=== PATIENT | male | born 1985 | race African-American/Black ===

== ENCOUNTER 2021-03-22 00:36 | Emergency (ER) | payer OTHER, SELFPAY ==
--- NOTE | ~2021-03-22 | CT_ITS ---
EXAMINATION: CT ABDOMEN AND PELVIS WITH CONTRAST CLINICAL INFORMATION: Abdominal pain COMPARISON: 11/01/2019 TECHNIQUE: Multidetector volumetric images were obtained from the superior aspect of the liver through the pubic symphysis following administration 85 mL of Omnipaque 350 intravenous contrast. Sagittal and coronal reformatted images were obtained on the technologist's workstation. Oral contrast: No This CT examination was performed using dose optimization techniques as appropriate, variously including the following: *Automated exposure control *Adjustment of mA and/or kV according to patient size (this includes techniques or standardized protocols for targeted exams where dose is matched to indication/reason for exam; i.e. extremities or head) *Use of iterative reconstruction technique DLP: 424 mGy-cm FINDINGS: LUNG BASES: The visualized lung bases are unremarkable. LIVER, GALLBLADDER, AND BILIARY TREE: The liver is normal in size, shape, and attenuation. No focal hepatic lesion or biliary ductal dilatation is present. The gallbladder is unremarkable with no evidence of radiopaque gallstones, gallbladder wall thickening, or obvious pericholecystic inflammatory changes. PANCREAS: Unremarkable. SPLEEN: Unremarkable. ADRENAL GLANDS: Unremarkable. KIDNEYS AND URETERS: The kidneys are normal in size, shape, and attenuation. No hydronephrosis, hydroureter, or calculi seen. No perinephric stranding. BLADDER: Unremarkable. GASTROINTESTINAL TRACT: The stomach is unremarkable. Normal caliber small bowel. No obstruction. Normal appendix. No colonic wall thickening or inflammatory change. No free air or free fluid. ABDOMINAL WALL: No significant hernia is appreciated. LYMPH NODES: Normal. VASCULAR: Unremarkable. PELVIC VISCERA: The prostate and seminal vesicles are unremarkable. OSSEOUS STRUCTURES: Unremarkable. CT/CT abdomen pelvis w con IMPRESSION: No acute findings of the abdomen or pelvis. No inflammatory change. Normal appendix.
[2021-03-22 00:50] VITALS: BP 97/64; PULSE 98; RESP 18; TEMP 36.4; O2SAT 99; BMI 24.3
--- NOTE | 2021-03-22 04:25 | ED_ITS ---
HPI - Abdominal Pain General Chief Complaint: Abdominal Pain Stated Complaint: abd pain Time Seen by Provider: 03/22/21 04:24 Source: patient Mode of arrival: ambulatory History of Present Illness HPI narrative: This 35-year-old male with history of a chill the presents with months abdominal cramping and states that for about an hour he has felt ?off? since yesterday. In triage patient endorses that he received the maternity vaccine yesterday. However, for me he paints a picture of having been evaluated for this abdominal cramping for months and has not been associated with fever, chills, nausea, vomiting, diarrhea, or urinary symptoms but states that evening he called into work because he had some vomiting and diarrhea but felt that it was secondary to some bad food that he had eaten. Related Data Allergies Allergy/AdvReac Type Severity Reaction Status Date / Time Sulfa (Sulfonamide Allergy Unknown UNKNOWN Unverified 04/25/20 17:26 Antibiotics) [SULFA (SULFONAMIDE ANTIBIOTICS)] Review of Systems Review of Systems Pertinent positives and negatives as stated in HPI 10 point review of systems is otherwise negative. Physical Exam Vital Signs: Vital Signs: Last Vital Signs Temp 97.5 F 03/22/21 00:50 Pulse 85 03/22/21 06:38 Resp 16 03/22/21 06:38 BP 109/79 03/22/21 06:38 Pulse Ox 97 03/22/21 06:38 Body Mass Index 24.3 VITAL SIGNS: Reviewed. GENERAL: Well developed, well nourished, in no acute distress. HEAD: Normocephalic/atraumatic EYES: PERRLA, EOMI LUNGS: Normal breath sounds. No adventitious sounds or accessory muscle use. SpO2<99> CARDIOVASCULAR: Regular rate and rhythm without noted murmurs ABDOMEN: Soft, non-tender, non-distended with bowel sounds. SKIN: Inspection of the skin reveals no rashes NEUROLOGIC: Alert and oriented x 4. Strength and sensation to light touch were grossly intact x 4. Course Course Course Narrative: This is a 35-year-old male with history and clinical presentation consistent with possible IBS versus gastritis versus gastroenteritis and doubt renal colic or UTI and inconsistent with appendicitis. Review of all investigations although significant for a leukocytosis this is consistent with prior lab work which shows the same, otherwise there are no acute findings. All results were discussed with the patient at bedside and he was strongly encouraged to continue with follow-up with Gastroenterology for further outpatient management. Patient was otherwise discharged home in stable condition. MDM - Abdominal Pain Lab Data Result diagrams: 03/22/21 04:52 03/22/21 04:52 Labs: Lab Results 03/22/21 03/22/21 03/22/21 Range/Units 04:52 04:52 04:52 WBC 15.5 H (4.8-10.8) X10*3/uL RBC 4.51 L (4.60-5.80) X10*6/uL Hgb 14.8 (14.0-18.0) g/dl Hct 42.3 (42-52) % MCV 93.8 (80-98) fL MCH 32.8 (27.0-33.0) pg MCHC 35.0 (31.0-36.0) g/dl RDW 13.7 (11.0-16.0) % Plt Count 264 (160-400) X10*3/uL MPV 9.0 L (9.4-12.4) fL Immature Gran % (Auto) 0.3 (0.0-0.4) % Neut % (Auto) 81.9 H (45-73) % Lymph % (Auto) 8.8 L (20-40) % [place] % (Auto) 7.6 (2-11) % Eos % (Auto) 1.3 (0-4) % Baso % (Auto) 0.1 (0-2) % Lymph # (Auto) 1.4 (1.2-4.9) X10*3/uL [place] # (Auto) 1.2 (0.1-1.2) X10*3/uL Eos # (Auto) 0.2 (0.0-0.4) X10*3/uL Baso # (Auto) 0.0 (0.0-0.2) X10*3/uL Abs Immat Gran (auto) 0.05 H (0.00-0.03) X10*3/uL Absolute Neuts (auto) 12.7 H (2.0-8.3) X10*3/uL Absolute Nucleated RBC 0.000 (0.0-0.012) X10*3/uL Nucleated RBC % (auto) 0.0 (0.0-0.2) /100WBC Sodium 139 (135-145) mmol/L Potassium 4.4 (3.3-5.1) mmol/L Chloride 105 (96-108) mmol/L Carbon Dioxide 26 (22-29) mmol/L Anion Gap 12 (12-20) BUN 8 L (9-16) mg/dL Creatinine 1.23 (0.5-1.4) mg/dL Estim Creat Clear Calc 77.6 Estimated GFR > 60 Random Glucose 96 (60-115) mg/dL Calcium 9.3 (8.4-10.2) mg/dL Total Bilirubin 0.6 (0.0-1.0) mg/dL AST 18 (5-37) U/L ALT 17 (0-40) U/L Alkaline Phosphatase 73 (39-117) U/L Total Protein 6.7 (6.5-8.0) g/dL Albumin 4.0 (3.5-5.0) g/dL COVID-19 ([facility]) Negative (Negative) COVID-19 Clin Com See Note Discharge Plan Discharge Clinical Impression: Gastritis, Abdominal discomfort, Hx of leukocytosis Patient Disposition: Home, Self-Care Instructions: Gastritis (ED), Diet for Stomach Ulcers and Gastritis (ED), Leukocytosis (ED) Additional Instructions: 1. Resume all home medications as prescribed. 2. Recommend adding Mylanta prior to meals for additional symptom relief of your stomach. 3. Please continue follow-up with your primary care provider as well as Gastroenterology. Return to the ER for acute worsening of symptoms. Referrals: Cosme Davies MD [Primary Care Provider] - 2 days (Re-evaluation for patient with chronic abdominal discomfort and what appears to be a persistent leukocytosis.) Stand Alone Forms: Work/School Release PMFSH Past Medical History Source: nursing notes reviewed Medical History No known health problems Social History Social History Advance Directives: No Advance Directives Information Provided: No
[2021-03-22] MEDS: Lidocaine HCl Viscous 2 % 15 ML SOLUTION 10 ML MUCOUS MEM (04:52)
[2021-03-22] MEDS: Magnesium Hydrox/Alum Hydrox 30 ML ORAL.SUSP PO (04:52)
[2021-03-22 05:00] LABS: MANUAL DIFF FLAG NO
[2021-03-22 05:01] LABS: Basophils Percent Auto 0.1 % (0-2); Eosinophils Absolute Auto 0.2 X10*3/uL (0.0-0.4); Eosinophils Percent Auto 1.3 % (0-4); Hematocrit 42.3 % (42-52); Hemoglobin 14.8 g/dl (14.0-18.0); Imm Gran Abs Auto 0.05 X10*3/uL (0.00-0.03); Imm Gran Pct Auto 0.3 % (0.0-0.4); Lymphocytes Absolute Auto 1.4 X10*3/uL (1.2-4.9); Lymphocytes Percent Auto 8.8 % (20-40); Mean Corpuscular Hemoglobin 32.8 pg (27.0-33.0); Mean Corpuscular Volume 93.8 fL (80-98); Monocytes Absolute Auto 1.2 X10*3/uL (0.1-1.2); Monocytes Percent Auto 7.6 % (2-11); Neutrophils Absolute Auto 12.7 X10*3/uL (2.0-8.3); Neutrophils Percent Auto 81.9 % (45-73); Platelet Count 264 X10*3/uL (160-400); Red Blood Count 4.51 X10*6/uL (4.60-5.80); Red Cell Distribution Width 13.7 % (11.0-16.0); White Blood Count 15.5 X10*3/uL (4.8-10.8)
[2021-03-22 05:17] LABS: COVID-19 Test Negative (Negative); IDNOW Serial# 9DD0AD1C
[2021-03-22 05:33] LABS: Alanine Aminotransferase 17 U/L (0-40); Alkaline Phosphatase 73 U/L (39-117); Anion Gap 12 (12-20); Aspartate Amino Transferase 18 U/L (5-37); Bilirubin Total 0.6 mg/dL (0.0-1.0); Blood Urea Nitrogen 8 mg/dL (9-16); Calcium 9.3 mg/dL (8.4-10.2); Carbon Dioxide 26 mmol/L (22-29); Chloride 105 mmol/L (96-108); Creatinine Clr Calc Pharmacy 77.6; Estimated Glomerular Filt Rate > 60; Glucose Random 96 mg/dL (60-115); Potassium 4.4 mmol/L (3.3-5.1); Sodium 139 mmol/L (135-145); Total Protein 6.7 g/dL (6.5-8.0)
[2021-03-22] MEDS: iohexoL 350 MG/ML 100 ML INFUS..BTL 85 ML IV (06:19)
[2021-03-22 06:38] VITALS: BP 109/79; PULSE 85; RESP 16; O2SAT 97
[2021-03-22 07:34] LABS: Glucose Urine UA NEG (NEG); Leukocyte Esterase Urine NEG (NEG); Nitrite Urine NEG (NEG); Specific Gravity - Urine <= 1.005 (1.005-1.025); Urine Blood NEG (NEG); Urine Ketones NEG (NEG); Urine Protein NEG (NEG-TRACE)
[2021-03-22 08:45] LABS: Appearance Urine CLEAR; Color Urine YELLOW
== END 2021-03-22 08:33 | disposition home or self-care (01) ==
PROVIDERS: Emergency Provider Student in an Organized Health Care Education/Training Program; PCP Internal Medicine
DX: K29.70 Gastritis, unspecified, without bleeding (principal); R10.9 Unspecified abdominal pain; D72.829 Elevated white blood cell count, unspecified; Z20.822 Contact with and (suspected) exposure to COVID-19
CPT/HCPCS: 36415; 74177; 80053; 81003; 85025; 87635; 99284; Q9967

== ENCOUNTER 2021-06-02 18:39 | Emergency (ER) | payer OTHER, SELFPAY ==
[2021-06-02 20:23] VITALS: BP 116/73; PULSE 70; RESP 16; TEMP 36.8; O2SAT 99; BMI 23.3
== END 2021-06-02 21:27 | disposition left against medical advice (07) ==
LOC: HO.ED 21:45
PROVIDERS: Emergency Provider Emergency Medicine; PCP Internal Medicine
DX: R51.9 Headache, unspecified (principal)
CPT/HCPCS: 99281; 99282

== ENCOUNTER 2022-10-25 18:58 | Emergency (ER) | payer OTHER, SELFPAY ==
[2022-10-25 19:07] VITALS: BP 121/72; BP 181/80; PULSE 82; PULSE 92; RESP 20; TEMP 36.9; O2SAT 97; BMI 24.3
--- NOTE | 2022-10-25 19:17 | ED_ITS ---
HPI - Headache General Chief Complaint: Headache Stated Complaint: migraine Time Seen by Provider: 10/25/22 19:03 History of Present Illness HPI Narrative: Patient is a 37-year-old male with a history of migraine headaches in the past. Presents today with having left-sided headache very similar to previous bouts of migraine. I sumatriptan with no avail. No fever no chills. Pain typical of migraines. Light seems to make it worse. Loud noise seems to make it worse. Patient from home. No focal weakness. Related Data Previous Rx's Medication Instructions Recorded ibuprofen 400 mg tablet 400 mg PO Q6H PRN pain #20 tabs 10/25/22 Allergies Allergy/AdvReac Type Severity Reaction Status Date / Time Sulfa (Sulfonamide Allergy Unknown UNKNOWN Unverified 04/25/20 17:26 Antibiotics) [SULFA (SULFONAMIDE ANTIBIOTICS)] Review of Systems Review of Systems: Positive headache on the left side Yes all other systems are reviewed and are negative PMFSH Past Medical History Attestation statement: The following information was validated with the patient. Medical History No known health problems Social History Social History Advance Directives: No Advance Directives Information Provided: No Physical Exam Vital Signs: Vital Signs: Last Vital Signs Temp 98.4 F 10/25/22 19:07 Pulse 82 10/25/22 19:07 Resp 20 10/25/22 19:07 BP 121/72 10/25/22 19:07 Pulse Ox 97 10/25/22 19:07 O2 Del Method 10/25/22 19:07 BMI result Body Mass Index 24.3 Appearance: Alert. Oriented X3. No acute distress. Eyes: Pupils equal, round and reactive to light. ENT: Pharynx normal. Neck: Normal inspection. Neck supple. No lymph nodes noted. No crepitus CVS: Normal heart rate and rhythm. Pulses normal. Normal S1 and S2 Respiratory: No respiratory distress. Breath sounds normal. No Wheezing. No rales Abdomen: Soft and nontender. No rigidity. No distention. good BS x4 Skin: Skin warm and dry. Normal skin color. Normal skin turgor. Extremities: No lower extremity edema. Neurovascular intact to all extremities. No Lacerations. No Rash Neuro: Oriented X 3. No motor deficit. No sensory deficit. Moving all extermities. No slurred speech Medications Administered Discontinued Medications Generic Name Dose Route Start Last Admin Trade Name Alf PRN Reason Stop Dose Admin Diphenhydramine HCl 50 mg 10/25/22 19:16 10/25/22 19:34 Diphenhydramine Hcl 50 Mg/Ml Vial IVPUSH 10/25/22 19:17 50 mg ONCE ONE Administration Sodium Chloride 1,000 mls @ 999 mls/hr 10/25/22 19:30 10/25/22 21:39 Ns IV 10/25/22 20:30 Infused .Q1H1M DEREK Infusion Ketorolac Tromethamine 30 mg 10/25/22 19:16 10/25/22 19:34 Ketorolac Tromethamine 30 Mg/Ml Vial IVPUSH 10/25/22 19:17 30 mg ONCE ONE Administration Prochlorperazine Edisylate 10 mg 10/25/22 19:16 10/25/22 19:34 Prochlorperazine Edisylate 10 Mg/2 Ml Vial IVPUSH 10/25/22 19:17 10 mg ONCE ONE Administration Medical Decision Making Medical Decision Making MDM Narrative: Patient well-appearing symptoms consistent with migraine headache. Given migraine cocktail including Compazine Benadryl IV fluids. Toradol. Symptoms felt much improved. Now the headache is gone. Neurologically patient is intact. History of migraine. No fever no chills no nuchal rigidity history not consistent with meningitis. History not consistent with intracranial bleed. Will discharge patient home. In stable condition. Differential Diagnosis Differential Diagnoses: The differential diagnosis associated with the presentation includes Intracranial bleed, meningitis, mass, fracture Admission/Observation Consideration of admission/observation: Escalation of care including admission/observation considered Symptom improved no need to admit Lab Data MDM Lab Attestation statement: I reviewed the patient's lab results. 10/25/22 19:10/25/22 19:23 Labs: Lab Results 10/25/22 10/25/22 Range/Units : 19: WBC 14.2 H (4.8-10.8) X10*3/uL RBC 4.66 (4.60-5.80) X10*6/uL Hgb 14.7 (14.0-18.0) g/dl Hct 42.7 (42.0-52.0) % MCV 91.6 (80.0-98.0) fL MCH 31.5 (27.0-33.0) pg MCHC 34.4 (31.0-36.0) g/dl RDW 13.4 (11.0-16.0) % Plt Count 290 (160-400) X10*3/uL MPV 9.0 L (9.4-12.4) fL Immature Gran % (Auto) 0.4 (0.0-0.4) % Neut % (Auto) 69.3 (45-73) % Lymph % (Auto) 20.6 (20-40) % [place] % (Auto) 8.3 (2-11) % Eos % (Auto) 1.2 (0-4) % Baso % (Auto) 0.2 (0-2) % Lymph # (Auto) 2.9 (1.2-4.9) X10*3/uL [place] # (Auto) 1.2 (0.1-1.2) X10*3/uL Eos # (Auto) 0.2 (0.0-0.4) X10*3/uL Baso # (Auto) 0.0 (0.0-0.2) X10*3/uL Abs Immat Gran (auto) 0.05 H (0.00-0.03) X10*3/uL Absolute Neuts (auto) 9.8 H (2.0-8.3) x10*3/uL Absolute Nucleated RBC 0.000 (0.0-0.012) X10*3/uL Nucleated RBC % (auto) 0.0 (0.0-0.2) /100WBC Sodium 140 (135-145) mmol/L Potassium 4.1 (3.3-5.1) mmol/L Chloride 102 (96-108) mmol/L Carbon Dioxide 28 (22-29) mmol/L Anion Gap 14 (12-20) BUN 11 (9-16) mg/dL Creatinine 1.49 H (0.5-1.4) mg/dL Estim Creat Clear Calc 62.8 Estimated GFR 53 Random Glucose 96 (60-115) mg/dL Calcium 9.5 (8.4-10.2) mg/dL Discharge Plan Discharge Clinical Impression: Migraine Patient Disposition: Home, Self-Care Instructions: Migraine Headache (ED) Prescriptions: New ibuprofen 400 mg tablet 400 mg PO Q6H PRN (Reason: pain) Qty: 20 0RF Referrals: Aruna Tobar MD [Primary Care Provider] -
[2022-10-25 19:29] LABS: MANUAL DIFF FLAG NO
[2022-10-25 19:32] LABS: Basophils Percent Auto 0.2 % (0-2); Eosinophils Absolute Auto 0.2 X10*3/uL (0.0-0.4); Eosinophils Percent Auto 1.2 % (0-4); Hematocrit 42.7 % (42.0-52.0); Hemoglobin 14.7 g/dl (14.0-18.0); Imm Gran Abs Auto 0.05 X10*3/uL (0.00-0.03); Imm Gran Pct Auto 0.4 % (0.0-0.4); Lymphocytes Absolute Auto 2.9 X10*3/uL (1.2-4.9); Lymphocytes Percent Auto 20.6 % (20-40); Mean Corpuscular HGB Conc 34.4 g/dl (31.0-36.0); Mean Corpuscular Hemoglobin 31.5 pg (27.0-33.0); Mean Corpuscular Volume 91.6 fL (80.0-98.0); Monocytes Absolute Auto 1.2 X10*3/uL (0.1-1.2); Monocytes Percent Auto 8.3 % (2-11); Neutrophils Absolute Auto 9.8 x10*3/uL (2.0-8.3); Neutrophils Percent Auto 69.3 % (45-73); Platelet Count 290 X10*3/uL (160-400); Red Blood Count 4.66 X10*6/uL (4.60-5.80); Red Cell Distribution Width 13.4 % (11.0-16.0); White Blood Count 14.2 X10*3/uL (4.8-10.8)
[2022-10-25] MEDS: Ketorolac Tromethamine 30 MG/ML VIAL IVPUSH (19:34)
[2022-10-25] MEDS: Prochlorperazine Edisylate 10 MG/2 ML VIAL IVPUSH (19:34)
[2022-10-25] MEDS: diphenhydrAMINE HCL 50 MG/ML VIAL IVPUSH (19:34)
[2022-10-25] MEDS: 0.9 % Sodium Chloride 1,000 ML 999 ML IV (19:35)
[2022-10-25 19:54] LABS: Anion Gap 14 (12-20); Blood Urea Nitrogen 11 mg/dL (9-16); Calcium 9.5 mg/dL (8.4-10.2); Carbon Dioxide 28 mmol/L (22-29); Chloride 102 mmol/L (96-108); Creatinine Clr Calc Pharmacy 62.8; Estimated Glomerular Filt Rate 53; Glucose Random 96 mg/dL (60-115); Potassium 4.1 mmol/L (3.3-5.1); Sodium 140 mmol/L (135-145)
--- NOTE | 2022-10-25 21:54 | PC.NURSE ---
Patient alert and oriented. Administer pain medication as per OCT. Patient reports improvement in headache 0 out of 10. Provided gingerale and crackers. Patient tolerated well. Will continue with plan of care.
--- NOTE | 2022-10-25 22:04 | PC.NURSE ---
Genet, patient's spouse called reporting that she thinks that CT scan with IV contrast would be beneficial in making final diagnosis before discharging patient home d/t severity and duration of symptoms. Dr. Kennedy notified.
[2022-10-25 23:04] VITALS: BP 102/57; PULSE 76; RESP 15; TEMP 37.1; O2SAT 97
== END 2022-10-25 23:37 | disposition home or self-care (01) ==
PROVIDERS: Emergency Provider Emergency Medicine Emergency Medical Services; PCP Internal Medicine
DX: G43.909 Migraine, unspecified, not intractable, without status migrainosus (principal); Z79.899 Other long term (current) drug therapy
CPT/HCPCS: 36415; 80048; 85025; 96361; 96374; 96375; 99284; 99285; J1200; J1885

== ENCOUNTER 2024-03-21 22:08 | Emergency (ER) | payer OTHER, SELFPAY ==
[2024-03-21 22:37] VITALS: BP 130/80; PULSE 110; O2SAT 97
[2024-03-21 22:39] VITALS: BP 108/76; PULSE 122; RESP 16; TEMP 37.2; O2SAT 95; BMI 27.3
--- NOTE | 2024-03-22 00:01 | ED.GENADULT ---
HPI - General Adult General Chief complaint: Skin/Abscess/Foreign Body Stated complaint: ABSCESS ON L BUTT CHEEK Time Seen by Provider: 03/21/24 23:48 Source: patient, RN notes reviewed and old records reviewed Mode of arrival: ambulatory Limitations: no limitations History of Present Illness ED Provider: Ariadna HPI narrative: 38-year-old male with past medical history significant for hyperlipidemia presents for evaluation of a painful abscess to his left lower buttocks. Patient reports that he has had pain for the last 4 days The area has been getting progressively more painful He denies any testicular pain or swelling He has no rectal pain He does reports subjective fevers and chills but did not take his temperature He denies being a diabetic His pain is 05/18 Related Data Previous Rx's ?Medication ?Instructions ?Recorded ibuprofen 400 mg tablet 400 mg PO Q6H PRN pain #20 tabs 10/25/22 cephalexin 500 mg capsule 500 mg PO QID #28 caps 03/22/24 doxycycline hyclate 100 mg tablet 100 mg PO BID #14 tabs 03/22/24 oxycodone 5 mg tablet 5 mg PO Q6H PRN severe pain (scale 03/22/24 score 7-10) #20 tabs Allergies Allergy/AdvReac Type Severity Reaction Status Date / Time Sulfa (Sulfonamide Allergy Unknown UNKNOWN Unverified 03/21/24 22:42 Antibiotics) [SULFA (SULFONAMIDE ANTIBIOTICS)] Review of Systems Constitutional: Constitutional: Denies body ache(s), Reports chills, Reports fever(s) and Denies frequent falls Eyes: Eyes: Denies blurry vision Cardiovascular: Cardiovascular: Denies chest pain and Denies dyspnea Respiratory: Respiratory: Denies cough and Denies dyspnea Gastrointestinal: Gastrointestinal: Denies abdominal pain and Denies nausea Musculoskeletal: Musculoskeletal: Denies back pain Integumentary/Breasts: Skin/Breast: Reports erythema, Reports skin pain and Reports skin swelling Neurologic: Denies frequent falls PMFSH Past Medical History Medical History No known health problems Social History Social History Advance Directives: No Advance Directives Information Provided: Yes Do you have a plan to hurt others: No Plan Physical Exam ED Vital Signs: Vital Signs - 24 hr 03/21/24 22:39 03/22/24 00:02 Temperature 98.9 F 98.3 F Pulse Rate 122 H Respiratory Rate 16 Blood Pressure 108/76 Pulse Oximetry 95 Oxygen Delivery Method Room Air BMI result Body Mass Index 27.3 Const General: healthy appearing, no acute distress, alert and awake Nutritional Appearance: well nourished Orientation/consciousness: patient oriented x3 HENMT Head: Yes normocephalic and Yes atraumatic Eyes Eyelids: Yes eyelids normal Conjunctivae: conjunctivae normal Sclerae: sclerae normal Corneas: corneas normal Pupils: Equal, round and reactive pupils present EOM: EOMs intact bilaterally Neck Neck: Yes full ROM Resp Effort & Inspection: normal respiratory effort, able to speak in complete sentences and not labored GI Inspection: No distended Palpation (GI): Soft to palpation, not firm, nontender, no guarding and not rigid Skin Other: Patient has a 2 x 3 cm area of erythema, fluctuance with exquisite tenderness to the inferior aspect of the left buttocks and perineum. This does not appear to extend to the scrotum. It does not appear to extend superiorly towards the rectum General skin exam: elasticity normal Neuro General: patient oriented x3 Cranial nerves: Yes Equal, round and reactive pupils present and Yes Bilaterally intact EOM present Cognition (Neuro): normal cognition Extrem Other: Moving all extremities well without any obvious deformities Course Reevaluation(s) Reevaluation #1: I was able to begin the patient's I and D procedure. I was able to make 1 small incision after local anesthesia was administered. The patient adamantly refused any further anesthesia or incision or needle aspiration. He requested to be discharged with antibiotics and pain medication. Time: 01:50 Medications Administered Discontinued Medications Generic Name Dose Route Start Last Admin Trade Name Freq PRN Reason Stop Dose Admin Lidocaine/Epinephrine 10 ml 03/21/24 23:59 03/22/24 01:06 Lidocaine Hcl 1%/Epi 1:100,000 10 Ml Vial SUBCUT 03/22/24 00:00 Not Given ONCE ONE Lorazepam 2 mg 03/21/24 23:59 03/22/24 00:18 Lorazepam 1 Mg Tablet PO 03/22/24 00:00 2 mg ONCE ONE Administration Morphine Sulfate 30 mg 03/21/24 23:59 03/22/24 00:18 Morphine Sulfate Immed Release 15 Mg Tablet PO 03/22/24 00:00 30 mg ONCE ONE Administration Procedures Abscess I/D Site: other (Left lower buttock/perineum) Side (if applicable): left Sedation/analgesia: other (Morphine, Ativan p.o.) Local Anesthetic: lidocaine 1% and with epi Amount of anesthesia used (mL): 2 Technique: incised with blade Amount of fluid expressed (mL): 3 Sent for culture/gram staining?: No Irrigation: No Packing used?: none Complications: pain and other (I do not feel as though I was able to adequately drain the complete abscess. The patient asked me to stop as he could not take anymore pain. I offered to give him more pain medication or local anesthesia and he declined. He would like to be discharged and continue with antibiotics) Medical Decision Making Medical Decision Making MDM Narrative: 38-year-old male presents for evaluation of a soft tissue abscess to the left lower buttocks and perineum. Again, this does not appear to involve the scrotum or the rectum. The patient is tachycardic likely related to discomfort, he is afebrile despite subjective fevers and chills. He is nontoxic appearing. Plan to perform bedside I& D. Will treat the patient with morphine and Ativan prior to procedure as he is quite anxious due to the pain. Differential Diagnosis Differential Diagnoses: The differential diagnosis associated with the presentation includes Abscess Cellulitis Kendal's gangrene Dermatitis Discharge Plan Discharge Clinical Impression: Abscess of skin or subcutaneous tissue Patient Disposition: Home, Self-Care Instructions: Abscess (ED), Incision and Drainage (ED) Additional Instructions: I was unable to completely drain the abscess. I strongly recommend applying warm compresses every 4 hours Take both antibiotics as prescribed Use Motrin and Tylenol for pain. You may use oxycodone for more severe breakthrough pain This may make you drowsy, do not drink alcohol or drive after taking it Is important that you return to the ER if you have any worsening symptoms, especially if you experience fevers, worsening pain towards your scrotum or rectum, as this would be concerning for worsening abscess Prescriptions: New cephalexin 500 mg capsule 500 mg PO QID Qty: 28 0RF doxycycline hyclate 100 mg tablet 100 mg PO BID Qty: 14 0RF oxycodone 5 mg tablet 5 mg PO Q6H PRN (Reason: severe pain (scale score 7-10)) Qty: 20 0RF Rx Instructions: Partial Fill upon patient request. No Action ibuprofen 400 mg tablet 400 mg PO Q6H PRN (Reason: pain) Qty: 20 0RF Print Language: Yoruba
[2024-03-22 00:02] VITALS: TEMP 36.8
[2024-03-22] MEDS: Morphine Sulfate Immed Release 15 MG TABLET 30 MG PO (00:18)
[2024-03-22] MEDS: LORazepam 1 MG TABLET 2 MG PO (00:18)
[2024-03-22] MEDS: Doxycycline Monohydrate 100 MG CAPSULE PO (02:08)
[2024-03-22] MEDS: cephALEXin 500 MG CAPSULE PO (02:08)
[2024-03-22 02:13] VITALS: BP 108/76; PULSE 87; RESP 14; TEMP 36.8; O2SAT 96
== END 2024-03-22 02:29 | disposition home or self-care (01) ==
PROVIDERS: Emergency Provider Emergency Medicine; PCP Internal Medicine
DX: L02.31 Cutaneous abscess of buttock (principal)
CPT/HCPCS: 10060; 99283; 99284

== ENCOUNTER 2025-02-20 11:00 | Outpatient (REF) | payer OTHER, SELFPAY ==
--- NOTE | ~2025-02-20 | XR_ITS ---
EXAMINATION: XR HAND 3 OR MORE VIEWS RIGHT HISTORY: M79.641 - Pain in right hand COMPARISON: There are no prior studies available for comparison. FINDINGS: Three views of the right hand are submitted. Osseous mineralization is normal. A tiny osseous density is seen at the volar aspect of the PIP joint of the index finger which could represent an avulsion fracture fragment. The bones are otherwise intact. The joint spaces are preserved. The soft tissues are unremarkable. XR/XR hand RT min 3V IMPRESSION: Possible avulsion fracture fragment at the volar aspect of the PIP joint of the index finger. Clinical correlation is recommended. Electronically signed by: Anam Banegas MD 02/20/2025 11:48 AM EDT
--- OUTSIDE RECORDS SUMMARY | 2025-02-21 11:54 | XMS_ITS | Clinical Summary ---
Author Organization [facility] Address [address] [place] [address] Care Team Providers Care Fixing Machine Operator Name Role Phone Cosme Davies MD Primary Care Provider [phone] Allergies Active Allergy Reactions Criticality Noted Date [...] Cholecalciferol (Dialyvite Vitamin D3 Max) 1.25 MG (18042 UT) TABS Take 1 tablet by mouth [...] age to complete this topic Care Teams Fixing Machine Operator Relationship Specialty Start Date End Date Cosme Davies MD PCP - General Internal Medicine 08/23/19
--- OUTSIDE RECORDS SUMMARY | 2025-02-21 11:54 | XMS_ITS | Clinical Summary ---
Author Organization [facility] Address [address] [address] [place] [address] Phone Care Team Providers Care Brooch Maker Novelty Name Role Phone Amadou Elizahari Primary Care Provider [phone] Allergies Active Allergy Reactions Criticality Noted Date Comments Shellfish Allergy 11/16/2022 Sulfa Antibiotics 04/24/2015 Told as child Medications acetaminophen (TYLENOL) 500 MG tablet TAKE 2 TABLETS BY MOUTH EVERY 6 HOURS 9 Active atorvastatin (LIPITOR) 20 MG tablet Take 1 tablet by mouth 1 (one) time each day 9 Active cholecalciferol (Dialyvite Vitamin D3 Max) 1.25 MG (46784 UT) tablet Take 1 tablet by mouth [...] ORDERABLES Final Resul t Performing Organization Address [facility] de Phone Number [facility] [address] [place] [address] * Urine Protein, 24 hour w/o Creatinine [...] ORDERABLES Final Resul t Performing Organization Address City/[facility] Co de Phone Number [facility] [address] [place] [address] * (ABNORMAL) Renal Function Panel (11/27/2024 12:05 [...] Resul t [facility] [address] [place] [address] from Last 3 Months Insurance [facility] [employer] [facility] Care Teams Brooch Maker Novelty Relationship Specialty Start Date End Date Fabiola Tobar PCP - General 07/19/23
--- OUTSIDE RECORDS SUMMARY | 2025-02-21 11:55 | XMS_ITS | Clinical Summary ---
Author Organization [facility] [address] [place] [address] [place] [phone] Phone Care Team Providers Care Traffic Control Officer Name Role Phone Fabiola Tobar MD Primary Care Provider Allergies Active Allergy Reactions Criticality Noted Date [...] asthma without complication CYNTHIA (acute kidney injury) ([facility] V24) 06/29/20 Gastroesophageal reflux disease 06/29/2023 [...] Care Team Description 12/25/2024 Telephone Gastroenterology - [place] [address] [facility] [address] [place] [address] Criss Chiu MD Special Procedure 12/18/2024 Telephone Adult Medicine [address] [address] Fabiola Tobar MD Advice Only 12/07/2024 8:30 AM EDT Office Visit [facility] Hematology Oncology [address] [place] [address] Evangelina Raymond PA Leukocytosis, unspecified type (Primary Dx); Leukemia consultation (CMS/HCC V24, CMS/HCC V28); Tobacco use disorder; Chronic joint pain 12/05/2024 9:15 AM EDT Ancillary Procedure [facility] Cardiology [facility] [address] [place] [address] Chest pain, unspecified type 12/01/[address] [facility] [address] [place] [phone] Volodymyr Guzmán MD Appointment (Cardiac Clearance for Dental Procedure) 12/01/[address] [place] [address] Volodymyr Guzmán MD stress test scheudling 11/29/2024 2:00 PM EDT Office Visit [facility] [address] [place] [address] Volodymyr Guzmán MD Chest pain, unspecified type 11/28/2024 12:00 PM EDT Office Visit Nephrology - [address] [address] Gaetano Stokes MD Elevated serum creatinine (Primary Dx) 11/22[facility]20[facility] [address] [facility] [address] [place] [address] Kaela Woodward MD Medication Problem from Last 3 Months Immunizations Name Administration Dates Next Due Hepatitis A Adult (Havrix; Vaqta) 19yo and older 05/04/2011 Hepatitis B (Zthcjvg-J-Jalgr , Recombivax HB-Adult) 19yo and older 05/04/2011 Influenza Quadravalent, MDCK , 0.5ml, preservative free (Flucelvax) 6mo and older 05/27/2020 Td Tetanus diptheria (Tdvax) 7yo and older 01/07 Surgical History Surgery Date Site/Laterality Comments NO PAST SURGERIES PROCEDURE:NO PAST SURGERIES WISDOM TOOTH EXTRACTION PROCEDURE: HISTORICAL WISDOM TEETH EXTRACTION OTHER SURGICAL HISTORY 03/2019 PROCEDURE: WA INCISION & DRAINAGE ABSCESS SIMPLE/SINGLE; COMMENT: scrotum [...] 9:45 AM EDT Office Visit Pulmonolgy - [place] 175 [facility] [address] [place] [phone] Kaela Woodward MD 175 [facility] [address] [place] [address] 03/20/2025 11:00 AM EDT Office Visit [facility] [place] - [place] [address] [phone] Terrie Castillo PA [address] [address] 03/27/2025 11:00 AM EDT Appointment [facility] Endoscopy [address] [place] [phone] Cheng Dorsey DO [address] [address] 09/04/2025 3:00 PM EST Office Visit Adult Medicine [facility] [address] [place] [address] Fabiola Tobar MD [address] [place] [id number] Health Maintenance Due Date Last Done Comments [...] 2:05 PM EDT CYNTHIA (acute kidney injury) ([facility]/HCC V24) Chronic kidney disease, unspecified CKD stage Hyperlipidemia, unspecified hyperlipidemia type RENAL FUNCTION PANEL Routine 11/27/2024 12:05 PM EDT CYNTHIA (acute kidney injury) ([facility]/HCC V24) Chronic kidney disease, unspecified CKD stage Hyperlipidemia, unspecified hyperlipidemia type CREATININE, URINE, 24H Routine 11/27/2024 12:05 PM EDT CYNTHIA (acute kidney injury) ([facility]/HCC V24) Chronic kidney disease, unspecified CKD stage [...] Routine general medical examination at a [facility] facility HEPATITIS C SCREENING Routine 05/27/2020 from [...] mg/dL LAB CHEMISTRY METHOD 11/27/2024 8:09 PM [facility] Creatinine, 24H Ur 2,232(H) 800 - 2,000 mg/24 Hr LAB CHEMISTRY METHOD 11/27/2024 8:09 PM [facility] Urine Volume 1,800 mL LAB CHEMISTRY METHOD 11/27/2024 8:09 PM [facility] Collection Interval, Ur 24 hr LAB CHEMISTRY METHOD 11/27/2024 8:09 PM [facility] Urine Urine specimen from urethra / Unknown Non-blood Collection / Unknown 11/27/2024 12:05 PM EDT 11/27/2024 12:05 PM EDT us Gaetano Stokes MD LAB URINE ORDERABLES Final Res ult Performing Organization Address [facility]/ZIP Co de Phone Number [facility] [address] [place] [address], [place] [phone] * Protein, urine, 24H (11/27/2024 12:05 PM EDT) Protein, Urine 8 mg/dL LAB CHEMISTRY METHOD 11/27/2024 8:09 PM EDT [facility] Protein, 24H Ur 144.0 0.0 - 150.0 mg/24 hr LAB CHEMISTRY METHOD 11/27/2024 8:09 PM EDT [facility] Urine Volume 1,800 mL LAB CHEMISTRY METHOD 11/27/2024 8:09 PM EDT [facility] Collection Interval, Ur 24 hr LAB CHEMISTRY METHOD 11/27/2024 8:09 PM EDT [facility] Urine Urine specimen from urethra / Unknown Non-blood Collection / Unknown 11/27/2024 12:05 PM EDT 11/27/2024 12:05 PM EDT us Gaetano Stokes MD LAB URINE ORDERABLES Final Res ult Performing Organization Address [facility]/ZIP Co de Phone Number [facility] [address] [place] [address], [place] [phone] * (ABNORMAL) Renal function panel (11/27/2024 12:05 PM EDT) Sodium 137 133 - 145 mmol/L LAB CHEMISTRY METHOD 11/27/2024 6:18 PM EDT [facility] Potassium 4.7 3.5 - 5.5 mmol/L LAB CHEMISTRY METHOD 11/27/2024 6:18 PM [facility] Chloride 103 96 - 110 mmol/L LAB CHEMISTRY METHOD 11/27/2024 6:18 PM [facility] CO2 30 21 - 32 mmol/L LAB CHEMISTRY METHOD 11/27/2024 6:18 PM [facility] Anion Gap 4 3 - 11 LAB CHEMISTRY METHOD 11/27/2024 6:18 PM [facility] Glucose 73 70 - 100 mg/dL LAB CHEMISTRY METHOD 11/27/2024 6:18 PM [facility] BUN 12 5 - 25 mg/dL LAB CHEMISTRY METHOD 11/27/2024 6:18 PM [facility] Creatinine 1.35(H) 0.70 - 1.30 mg/dL LAB CHEMISTRY METHOD 11/27/2024 6:18 PM [facility] eGFR 68 >=60 mL/min/1. 73m2 LAB CHEMISTRY METHOD 11/27/2024 6:18 PM [facility] Comment:Calculation based on the Chronic Kidney Disease Epidemiology Collaboration (CKD-EPI) equation refit without adjustment for race. BUN/Creatinine Ratio 8.9 LAB CHEMISTRY METHOD 11/27/2024 6:18 PM [facility] Albumin 3.7 3.2 - 5.0 g/dL LAB CHEMISTRY METHOD 11/27/2024 6:18 PM [facility] Calcium 9.5 8.5 - 10.5 mg/dL LAB CHEMISTRY METHOD 11/27/2024 6:18 PM [facility] Phosphorus 3.0 2.5 - 4.5 mg/dL LAB CHEMISTRY METHOD 11/27/2024 6:18 PM [facility] Blood Venous blood specimen / Unknown Venipuncture / Unknown 11/27/2024 12:05 PM EDT 11/27/2024 12:05 PM EDT us Gaetano Stokes MD LAB BLOOD ORDERABLES Final Res ult [facility] [address] [place] [address], [place] [phone] * Wilcox urine culture tube (11/23/2024 11:31 AM EDT) Pathologist [facility] Extra Tube Hold for add-ons. 11/23/2024 1:01 PM EDT [facility] Comment:Auto resulted. Urine Urine specimen obtained by clean catch procedure / Unknown Non-blood Collection / Unknown 11/23/2024 11:31 AM EDT 11/23/2024 11:31 AM EDT Fabiola Tobar MD LAB URINE ORDERABLES Final Result Performing Organization Address City/[facility]/ZIP Co de Phone Number [facility] [address] [place] [address], [place] [phone] * (ABNORMAL) Urinalysis with reflex microscopic and culture (11/23/2024 11:02 AM EDT) [facility] [place] Urine 1.024 1.003 - 1.030 LAB URINALYSIS - AUTOMATED METHOD 11/23/2024 12:44 PM T [facility] pH, Urine 8.0 5.0 - 8.0 pH LAB URINALYSIS - AUTOMATED METHOD 11/23/2024 12:44 PM [facility] Leukocytes, Urine Negative Negative LAB URINALYSIS - AUTOMATED METHOD 11/23/2024 12:44 PM EDT [facility] Nitrite, Urine Negative Negative LAB URINALYSIS - AUTOMATED METHOD 11/23/2024 12:44 PM EDT [facility] Protein, Urine 30(A) <=Trace mg/dL LAB URINALYSIS - AUTOMATED METHOD 11/23/2024 12:44 PM T [facility] Glucose, Urine Negative Negative mg/dL LAB URINALYSIS - AUTOMATED METHOD 11/23/2024 12:44 PM EDT [facility] Ketones, Urine Trace(A) Negative mg/dL LAB URINALYSIS - AUTOMATED METHOD 11/23/2024 12:44 PM [facility] Urobilinogen, Urine 1.0 0.2 - 1.0 mg/dL LAB URINALYSIS - AUTOMATED METHOD 11/23/2024 12:44 PM [facility] Bilirubin, Urine Negative Negative LAB URINALYSIS - AUTOMATED METHOD 11/23/2024 12:44 PM [facility] Blood, Urine Negative Negative LAB URINALYSIS - AUTOMATED METHOD 11/23/2024 12:44 PM [facility] RBC, Urine 2.4 0 - 4 /HPF LAB URINALYSIS - AUTOMATED METHOD 11/23/2024 12:44 PM [facility] WBC, Urine 1.1 0 - 4 /HPF LAB URINALYSIS - AUTOMATED METHOD 11/23/2024 12:44 PM [facility] Squamous Epithelial, Urine 10 0 - 60 /LPF LAB URINALYSIS - AUTOMATED METHOD 11/23/2024 12:44 PM [facility] Bacteria, Urine Negative Negative /HPF LAB URINALYSIS - AUTOMATED METHOD 11/23/2024 12:44 PM [facility] Hyaline Casts, Urine 0.4 0 - 3 /LPF LAB URINALYSIS - AUTOMATED METHOD 11/23/2024 12:44 PM [facility] Urine Urine specimen obtained by clean catch procedure / Unknown Non-blood Collection / Unknown 11/23/2024 11:02 AM EDT 11/23/2024 11:02 AM EDT us Fabiola Tobar MD LAB URINE ORDERABLES Final Result [facility] [address] [place] [address], [place] [phone] * (ABNORMAL) Basic metabolic panel (11/23/2024 11:02 AM EDT) Sodium 135 133 - 145 mmol/L LAB CHEMISTRY METHOD 11/23/2024 2:52 PM [facility] Potassium 4.0 3.5 - 5.5 mmol/L LAB CHEMISTRY METHOD 11/23/2024 2:52 PM [facility] Chloride 100 96 - 110 mmol/L LAB CHEMISTRY METHOD 11/23/2024 2:52 PM [facility] CO2 30 21 - 32 mmol/L LAB CHEMISTRY METHOD 11/23/2024 2:52 PM [facility] Anion Gap 5 3 - 11 LAB CHEMISTRY METHOD 11/23/2024 2:52 PM [facility] Glucose 90 70 - 100 mg/dL LAB CHEMISTRY METHOD 11/23/2024 2:52 PM [facility] BUN 13 5 - 25 mg/dL LAB CHEMISTRY METHOD 11/23/2024 2:52 PM [facility] Creatinine 1.39(H) 0.70 - 1.30 mg/dL LAB CHEMISTRY METHOD 11/23/2024 2:52 PM [facility] eGFR 66 >=60 mL/min/1. 73m2 LAB CHEMISTRY METHOD 11/23/2024 2:52 PM [facility] Comment:Calculation based on the Chronic Kidney Disease Epidemiology Collaboration (CKD-EPI) equation refit without adjustment for race. BUN/Creatinine Ratio 9.4 LAB CHEMISTRY METHOD 11/23/2024 2:52 PM [facility] Calcium 9.5 8.5 - 10.5 mg/dL LAB CHEMISTRY METHOD 11/23/2024 2:52 PM [facility] Blood Venous blood specimen / Unknown Venipuncture / Unknown 11/23/2024 11:02 AM EDT 11/23/2024 11:02 AM EDT us Fabiola Tobar MD LAB BLOOD ORDERABLES Final Result [facility] [address] [place] [address], [place] [phone] * Lipid panel with reflex to direct LDL (11/14/2024 10:06 AM EDT) Cholesterol 166 0 - 200 mg/dL LAB CHEMISTRY METHOD 11/14/2024 1:31 PM EDT [facility] Triglycerides 94 0 - 150 mg/dL LAB CHEMISTRY METHOD 11/14/2024 1:31 PM EDT [facility] HDL 57 >=40 mg/dL LAB CHEMISTRY METHOD 11/14/2024 1:31 PM EDT [facility] LDL Calculated 90 0 - 100 mg/dL LAB CHEMISTRY METHOD 11/14/2024 1:31 PM EDT [facility] VLDL Cholesterol Willian 18.8 mg/dL LAB CHEMISTRY METHOD 11/14/2024 1:31 PM EDT [facility] Non HDL Chol. (LDL+VLDL) 109 <145 mg/dL LAB CHEMISTRY METHOD 11/14/2024 1:31 PM EDT [facility] Chol/HDL Ratio 2.9 0.0 - 4.4 LAB CHEMISTRY METHOD 11/14/2024 1:31 PM EDT [facility] Blood Venous blood specimen / Unknown Venipuncture / Unknown 11/14/2024 10:06 AM EDT 11/14/2024 10:06 AM EDT Prashanth MONET LAB BLOOD ORDERABLES Fin al Result [facility] [address] [place] [address], [place] [phone] * Hepatitis C Screening (05/27/2020) Hepatitis C Screening Abstracted us Historical Provider HEALTH MAINTENANCE Final Result from Last 3 Months or Most Recently Relevant to Health Maintenance Insurance [facility] [employer] Care Teams Traffic Control Officer Relationship Specialty Start Date End Date Fabiola Tobar MD [address] [place] [address] PCP - General 10/20/22
== END 2025-02-20 11:01 | disposition home or self-care (01) ==
LOC: HO.HOSX 11:00
DX: M25.641 Stiffness of right hand, not elsewhere classified (principal); M65.4 Radial styloid tenosynovitis [de Quervain]; M79.641 Pain in right hand
CPT/HCPCS: 73130; 99202

== ENCOUNTER 2025-02-20 11:31 | Outpatient (AMB) | payer OTHER, SELFPAY ==
--- NOTE | 2025-02-20 11:40 | A.OFFVIS_ITS ---
Vital Signs 02/20/25 11:51 Height 5 ft 7 in Weight 174 lb BMI 27.2 Intake Visit Reasons: [employer]- RT index finger Intake Note: Clinton is a 39 year old right hand dominant male who presents today as a new patient with complaints of right index finger pain. He was seen at [facility] in [place] on 01/25/25. Patient reports ongoing pain since December, denies injury. Patient reports pain is located in his IF and the ulnar aspect of hand. No locking or catching. Denies numbness or tingling. No previous treatment. He has constant pain in his index finger. Patient mentions an injury to his left middle finger that is causing him discomfort. Allergies Sulfa (Sulfonamide Antibiotics) (SULFA (SULFONAMIDE ANTIBIOTICS)) Allergy (Unknown, Unverified 02/20/25 11:51) UNKNOWN HPI HPI [employer]- RT index finger: Details: Clinton is a 39 year old right hand dominant male who presents today as a new patient with complaints of right index finger pain. He was seen at [facility] in [place] on 01/25/25. Patient reports ongoing pain since December, denies injury. Patient reports pain is located in his IF and the ulnar aspect of hand. No locking or catching. Denies numbness or tingling. No previous treatment. He has constant pain in his index finger. Patient mentions an injury to his left middle finger that is causing him discomfort. 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 Neuro: Normal sensation of the tips of all digits of the right hand at this time Vascular: Cap refill brisk Pain: Pain with range of motion of the right index finger and right wrist, particularly in the radial styloid ROM: Positive Rhonda on the right Patient is able to make a closed fist and extend all digits of the right hand, but reports some discomfort in the right index finger with full flexion and full extension Skin: No lacerations or abrasions. General: No ecchymosis, erythema, or evidence of infection. Psych: Appears grossly normal Affect normal Attitude cooperative Assessment & Plan Assessment & Plan (1) Stiffness of right hand joint: Code(s): M25.641 - Stiffness of right hand, not elsewhere classified Category: Medical (2) De Quervain's tenosynovitis, right: Code(s): M65.4 - Radial styloid tenosynovitis [de Quervain] Category: Medical Plan 1. De Quervain tenosynovitis, right 2. Stiffness of right index finger Patient is educated about these conditions Patient is educated about the treatment options available At this time, patient states he is entirely uninterested in any injections or surgical intervention Patient is referred to occupational therapy for range of motion and strengthening of the right hand in the setting of both stiffness of the right index finger and de Quervain tenosynovitis Patient is educated that if 6-8 weeks after starting occupational therapy he is still experiencing significant pain, he should return to our office for further evaluation and discussion of further treatment options Patient understands this, however does once again state he is entirely uninterested in any surgery or injections Follow-up as needed Orders: Orders XR hand RT min 3V 02/20/25 M79.641 - Pain in right hand OT Evaluation and Treatment 02/20/25 M25.641 - Stiffness of right hand, not elsewhere classified, M65.4 - Radial styloid tenosynovitis [de Quervain] Medications: Discontinued doxycycline hyclate Discontinued Reason: Patient no longer taking 100 mg PO BID 14 tabs 0RF oxycodone Partial Fill upon patient request. Discontinued Reason: Patient no longer taking 5 mg PO Q6H PRN 20 tabs 0RF severe pain (scale score 7-10) cephalexin Discontinued Reason: Patient no longer taking 500 mg PO QID 28 caps 0RF Coding Level of Care Code New Pt Level 3 (15644) Diagnoses Stiffness of right hand joint M25.641 De Quervain's tenosynovitis, right M65.4
[2025-02-20 11:51] VITALS: BMI 27.2
--- OUTSIDE RECORDS SUMMARY | 2025-02-20 12:54 | XMS_ITS ---
Author Name [facility] Organization Unknown History of Medication Use Medication Directions Dispensed Refills Start Date End Date Stat us EQ Pain Reliever 500 MG tablet Take 2 tablets (1,000 mg total) by mouth every 6 (six) hours. 11/03/2022 active ibuprofen 800 MG tablet Take 1 tablet (800 mg total) by mouth 3 (three) times a day. 11/03/2022 active ondansetron (ZOFRAN-ODT) 4 MG disintegrating tablet DISSOLVE 1 TABLET IN MOUTH EVERY 6 TO 8 HOURS NEEDED FOR NAUSEA AND VOMITING 10/31/2022 active atorvastatin (LIPITOR) tablet 20 mg Take 1 tablet (20 mg total) by mouth daily. 01/29/2022 active Allergies Allergen Reaction Severity Comment Documented Date Source Statu s SHELLFISH 11/16/2022 CTTHNEMG active SULFA ANTIBIOTICS Told as child 04/24/2015 CTTHN EMG active Problems Problem Status Onset Date Problem Type Date of Resolution Source Migraine without aura and with status migrainosus, not intractable active EncounterDiagnosisAct CTT HNEMG
--- OUTSIDE RECORDS SUMMARY | 2025-02-20 12:54 | XMS_ITS | Clinical Summary ---
Author Organization [facility] Address [address] [facility] [address] [place] [address] Phone Care Team Providers Care Building Associate Name Role Phone Amadou Elizahari Primary Care Provider [phone] Allergies Active Allergy Reactions Criticality Noted Date Comments Shellfish Allergy 11/16/2022 Sulfa Antibiotics 04/24/2015 Told as child Medications acetaminophen (TYLENOL) 500 MG tablet TAKE 2 TABLETS BY MOUTH EVERY 6 HOURS 9 Active atorvastatin (LIPITOR) 20 MG tablet Take 1 tablet by mouth 1 (one) time each day 9 Active cholecalciferol (Dialyvite Vitamin D3 Max) 1.25 MG (08185 UT) tablet Take 1 tablet by mouth 1 (one) time per week 3 Active Diclofenac Sodium 1 % gel Apply 4 g topically 3 Active divalproex (DEPAKOTE) 500 MG EC tablet Take 1 tablet by mouth in the morning and 1 tablet in the evening. 3 Active ibuprofen (ADVIL,MOTRIN) 800 MG tablet Take 1 tablet 3 times a day by oral route. 3 Active loratadine (CLARITIN) 10 MG tablet Take 1 tablet by mouth 1 (one) time each day 3 Active magnesium oxide 400 (240 Mg) MG tablet Take 400 mg by mouth 3 Active Cyanocobalamin (VITAMIN B 12 PO) Take by mouth Active Ascorbic Acid (vitamin C) 1000 MG tablet Take 1,000 mg by mouth 1 (one) time each day Active Multiple Vitamin (multivitamin) capsule Take 1 capsule by mouth 1 (one) time each day Active Active Problems Problem Noted Date Diagnosed Date Acute nontraumatic kidney injury 06/29/2023 Chronic kidney disease 03/23/2023 Insomnia 10/29/2022 Migraine 10/29/2022 Resolved Problems Problem Noted Date Diagnosed Date Resolved Date Spontaneous pneumothorax 09/02/2023 Gastroesophageal reflux disease 06/29/2023 09/02/2023 Hyperlipidemia 06/29/2023 09/02/2023 Obesity caused by energy imbalance 06/29/2023 09/02/2023 Lesion of urinary bladder 05/28/2023 Preprocedural examination done 05/28/2023 09/02/2023 History of nutritional deficiency 05/19/2023 09/02/2023 Pain in right hand 05/19/2023 Pain of toe of right foot 05/19/2023 Vitamin D deficiency 11/09/2022 024 Palpitations 12/05/2020 09/02/2023 Overview (09/02/2023): Last Assessment & Plan: Patient really does not describe much in the way of symptoms to states that his tells him that he is tachycardic he said no symptoms with this whatsoever no palpitations no lightheadedness no dizziness no chest pain or pressure. There is no evidence of orthostasis on exam there is no evidence of cardiac murmur on his exam there is no evidence of preexcitation on his EKG. Patient will be outfitted with a Holter monitor today on his way out of the office to see if there is any underlying arrhythmias. If there are no arrhythmias and the patient remains as asymptomatic as he says he is there is no need to proceed with any further testing Degeneration of lumbar intervertebral disc 02/06/2020 09/02/2023 Somatic dysfunction of hip region 03/02/2019 09/02/2023 Low back pain 03/11/2018 09/02/2023 Cannabis use, unspecified, uncomplicated 02/14/2018 09/02/2023 Pure hypercholesterolemia 02/14/2018 Immunizations Immunization Administration Dates Next Due Hepatitis A 05/04/2011 Hepatitis B 05/04/2011 Influenza, MDCK, PF, Quadrivalent 05/27/2020 Moderna SARS-COV-2 11/03/2021,03/21/2021, 021 Td 01/07/2006 Family History Medical History Relation Comments Diabetes Mother Relation Status Comments Mother Social History Tobacco Use Types Packs/Day Years Used Date Smoking Tobacco: Every Day Cigarettes Passive Smoke Exposure: Never Smokeless Tobacco: Never Tobacco Cessation:Ready to Q uit: No; Counseling Given: No Alcohol Use Standard Drinks/Week Comments Never 0 (1 standard drink = 0.6 oz pur e alcohol) Sex and Gender Information Value Date Recorded Sex Assigned at Not on file Legal Sex Male 1:35 PM EST Gender Identity Not on file Sexual Orientation Not on file Last Filed Vital Signs Vital Sign Reading Time Taken Comments Blood Pressure 100/69 09/03/2023 8:49 AM EST Pulse 91 09/03/2023 8:49 AM EST Temperature - - Respiratory Rate - - Oxygen Saturation 97% 09/03/2023 8:49 AM EST Inhaled Oxygen Concentration - - Weight 83 kg (183 lb) 09/03/2023 8:49 AM EST Height - - Body Mass Index - - Plan of Treatment Health Maintenance Due Date Last Done Comments Hepatitis B Vaccine (1 of 3 - 19+ 3-dose series) 06/0805/04/2011 Pneumococcal Vaccine: Peds ( 0 to 5 Years) and At-Risk Patients (6 to 49 Years) (1 of 2 - PCV) 2003 Influenza Vaccine (#1) 2025 05/27/2020 Procedures Procedure Name Priority Date/Time Associated Diagnosis Comments CREATININE, URINE, 24 HOUR Routine 11/27/2024 12:05 PM EDT URINE PROTEIN, 24 HOUR W/O CREATININE Routine 11/27/2024 12:05 PM EDT RENAL FUNCTION PANEL Routine 11/27/2024 12:05 PM EDT from Last 3 Months Results * (ABNORMAL) Creatinine, urine, 24 hour (11/27/2024 12:05 PM EDT) Creatinine, Urine 124.0 mg/dL [facility] Creatinine, 24H Ur 2,232(H) 800 - 2,000 mg/24 Hr [facility] Urine Volume 1,800 mL [facility] Collection Interval, Ur 24 hr [facility] 11/27/2024 12:0 5 PM EDT 11/27/2024 2:47 PM EDT us Gaetano Stokes MD LAB URINE ORDERABLES Final Resul t Performing Organization Address [facility] de Phone Number [facility] [address] [place] [address] * Urine Protein, 24 hour w/o Creatinine (11/27/2024 12:05 PM EDT) Protein, Ur 8 mg/dL [facility] Protein,mg/24Hr Urine 144.0 0.0 - 150.0 mg/24 hr [facility] Urine Volume 1,800 mL [facility] Collection Interval, Ur 24 hr [facility] 11/27/2024 12:0 5 PM EDT 11/27/2024 2:47 PM EDT us Gaetano Stokes MD LAB URINE ORDERABLES Final Resul t Performing Organization Address City/[facility] Co de Phone Number [facility] [address] [place] [address] * (ABNORMAL) Renal Function Panel (11/27/2024 12:05 PM EDT) Sodium 137 133 - 145 mmol/L [facility] Potassium 4.7 3.5 - 5.5 mmol/L [facility] Chloride 103 96 - 110 mmol/L [facility] Bicarbonate (CO2) 30 21 - 32 mmol/L [facility] Anion Gap 4 3 - 11 [facility] Glucose 73 70 - 100 mg/dL [facility] BUN 12 5 - 25 mg/dL [facility] Creatinine Serum 1.35(H) 0.70 - 1.30 mg/dL [facility] eGFR 68 >=60 mL/min/1. 73m2 [facility] Comment:Calculation based on the Chronic Kidney Disease Epidemiology Collaboration (CKD-EPI) equation refit without adjustment for race. BUN/Creatinine Ratio 8.9 [facility] Albumin 3.7 3.2 - 5.0 g/dL [facility] Calcium 9.5 8.5 - 10.5 mg/dL [facility] Phosphorus 3.0 2.5 - 4.5 mg/dL [facility] 11/27/2024 12:0 5 PM EDT 11/27/2024 2:53 PM EDT Gaetano Stokes MD LAB BLOOD ORDERABLES Final Resul t [place] [facility] [address] [place] [address] from Last 3 Months Insurance [facility] Care Teams Building Associate Relationship Specialty Start Date End Date Fabiola Tobar PCP - General 07/19/23
--- OUTSIDE RECORDS SUMMARY | 2025-02-20 12:54 | XMS_ITS | Data Portability ---
Author Organization [facility] [address] Address [address] [place] [address] Assessment No assessment recorded. Plan of Treatment Reminders Order Date Submit Date Provider Last Modified By Organization Details Last Modified Time Details Appointments None recorded. Lab None recorded. Referral None recorded. Procedures None recorded. Surgeries None recorded. Imaging None recorded. Medication Orders clindamycin HCl 300 mg capsule 2022 023 [facility] [address] [place] [address], [id number], 3 17:00:38 ibuprofen 800 mg tablet 2022 023 [facility] [address] [place] [address], [id number], 3 17:00:37 acetaminoph en 500 mg tablet 2022 023 [facility] [address] [place] [address], [address], 3 17:00:40 Fioricet 50 mg-300 mg-40 mg capsule 2022 023 [facility], [address] [place] [address], [id number], 3 10:12:31 Allergy Relief (fluticason e) 50 mcg/actuati on nasal spray,suspe nsion 2022 023 [facility], [address] [place] [address], [id number], 10:12:29 Patient TargetsNo targets recorded. Patient Instructions Encounter Date Encounter Id Patient Instructions Last Modified By Organization Details Last Modified Time 10/29/2022 [id number] Smoking is associated with many health problems. If you smoke, you should stop smoking to lessen your risk of developing smoking-related illnesses. Sinusitis is an infection of the lining of the sinus cavities in your head. Sinusitis often follows a cold. It causes pain and pressure in your head and face. In most cases, sinusitis gets better on its own in 1 to 2 weeks. But some mild symptoms may last for several weeks. Sometimes antibiotics are needed. if you are having problems. It's also a good idea to know your test results and keep a list of the medicines you take. How can you care for yourself at home? Take an kses-guj-locodpa pain medicine. Avoid Ibuprofen, Aleve and Aspirin if . If the doctor prescribed antibiotics, take them as directed. Do not stop taking them just because you feel better. You need to take the full course of antibiotics. Be careful when taking smum-bfp-rujalby cold or influenza (flu) medicines and Tylenol at the same time. Many of these medicines have acetaminophen, which is Tylenol. Read the labels to make sure that you are not taking more than the recommended dose. Too much acetaminophen (Tylenol) can be harmful. Breathe warm, moist air from a steamy shower, a hot bath, or a sink filled with hot water. Avoid cold, dry air. Using a humidifier in your home may help. Follow the directions for cleaning the machine. Use saline (saltwater) nasal washes. This can help keep your nasal passages open and wash out mucus and bacteria. You can buy saline nose drops at a grocery store or drugstore. Or you can make your own at home by adding 1 teaspoon (5 millilitres) of salt and 1 teaspoon (5 millilitres) of baking soda to 2 cups (500 mL) of distilled water. If you make your own, fill a bulb syringe with the solution, insert the tip into your nostril, and squeeze gently. Blow your nose. Put a hot, wet towel or a warm gel pack on your face 3 or 4 times a day for 5 to 10 minutes each time. Try a decongestant nasal spray like oxymetazoline (Drixoral). Do not use it for more than 3 days in a row. Using it for more than 3 days can make your congestion worse. [email or web address] Not available 10/29/2022 10:12:15 Increase fluids Go to the Emergency Room immediately if your symptoms worsen or you develop new symptoms that concern you. We recommend that you follow up with your primary care physician within one week. Failure to follow up as recommended may result in significant adverse health consequences. Go home and take Benadryl as directed Go home and go to a dark, quiet place and rest. If you wake with persisting symptoms, go to ER for further evaluation and treatment Avoid loud noises, prolonged TV, computer use Keep a headache diary Follow up with a Neurologist if you have no significant improvement this week [email or web address] Not available 10/29/2022 10:11:43 11/03/2022 [id number] Based on your presentation and exam, you are being treated for a Dental Infection. I am going to prescribe you and antibiotic to cover this infection. Please be sure to complete the full course of this antibiotic to prevent antibiotic resistance. Antibiotics will typically take 4-5 days to start to work with symptom improvement. The following are my other recommendations to help with symptoms and is important for this diagnosis: 1. Take Ibuprofen or Tylenol if you do not have any allergies to these medications. If you take a blood thinner you should not take NSAIDS like Ibuprofen. These medication will help with the inflammation in your respiratory tract which should help the cough. 2. Half Peroxide/Half Water Rinses 3. Make an appointment with a dentist - tooth infection will be helped with antibiotics but they usually just continue to reoccur. The only treatment is really a root canal or tooth extraction. 4. Oralgel can help alleviate some of the symptoms - this can be purchased OTC 5. Ice is ok to help with symptoms, but do not apply heat. I would be seen again if you develop any of the following symptoms. 1. Fever > 101.0 2. Stiff neck - where you can't turn your neck 3. Trouble swallowing your saliva - drooling 4. Swelling of a lymph node in your throat that is painful to touch 5. Difficulty breathing 6. Severe Headache 7. Significant facial swelling especially if it move up close to your eye. Thank you for using [facility] today, please feel free to contact our office if you have any questions or concerns. Not available 11/03/2022 17:01:11 Reason for Referral None Reported. Problems Name Problem SNOMED Code Status Onset Date Resolution Date Notes Provider Name and Address Organization Details Recorded Time Migraine 33200148 Active 2022 MJANA LANDEROS null, [place] - [facility] 3 09:08:46 Hyperlipidemia 05661845 Active 2022 NAVOS HEALTHEY null, [place] - [facility] 3 09:09:29 Gastroesophage al reflux disease 877037105 Active 2022 NAVOS HEALTHEY null, [place] - [facility] 3 09:12:10 Insomnia 552710257 Active 2022 MJ LANDEROS null, [place] - [facility] 3 09:12:15 Problem Notes None recorded. Procedures Surgical History Date Name Laterality Status Provider Name and Address Organization Details Recorded Time 4 OC-UDS Send Out Template NON DOT completed CHAVA CAPPS PA - [facility] 03/14/2024 16:21:34 Imaging Results None recorded. Procedure Notes None recorded. Medical Equipment None Reported. Allergies Allergen ID Allergen Name Allergen Category Reaction Reaction Severity Criticality Documentation Date Start Date Code Code System Note Provider Name and Address Organization Details Recorded Time 088382 Substance with sulfonami de structure and antibacte rial mechanism of action (substanc e) medicatio n Not available Not available Not available 10/29/2022 51822 8003 SNOMED react ion unkno wn MJ LANDEROS null, [place] - [facility] 3 09:10:04 400946 shellfish derived food,medi cation Not available Not available Not available 10/29/2022 20956 UNK unkno wn react ion MJ LANDEROS null, [place] - [facility] 3 09:10:18 Medications Name Sig Start Date Stop Date Status Note LastModified by Organization Details LastModified Time Prescriptio n - Renewal active Not Available Not Available Not Available atorvastati n 20 mg tablet TAKE 1 TABLET BY MOUTH ONCE DAILY active Not Available Not Available No t Available Acetaminoph en Extra Strength 500 mg tablet TAKE 2 TABLETS BY MOUTH EVERY 6 HOURS active Not Available Not Available No t Available clindamycin HCl 300 mg capsule Take 1 capsule 3 times a day by oral route for 14 days. 2022 active Not Available Not Available Not Avai lable ibuprofen 800 mg tablet TAKE 1 TABLET BY MOUTH THREE TIMES DAILY active Not Available Not Available No t Available sumatriptan 50 mg tablet TAKE 1 TABLET BY MOUTH ONCE, IF SATISFACT ORY RESPONSE HAS NOT BEEN ACHIEVED WITHIN 2 HOURS MAY REPEAT DOSE. NOT TO EXCEED MORE THAN 2 TABLETS IN A 24 HOUR PERIOD 11/03 completed Not Available Not Available Not Available hydroxyzine HCl 50 mg tablet TAKE 1 TABLET BY MOUTH 30-60 MINUTES BEFORE BEDTIME NEEDED FOR INSOMNIA 10/29 completed Not Available Not Available Not Available meclizine 25 mg tablet TAKE 1 TABLET BY MOUTH THREE TIMES DAILY NEEDED FOR DIZZINESS 2022 active Not Available Not Available Not Avai lable ibuprofen 400 mg tablet TAKE 1 TABLET BY MOUTH EVERY 6 HOURS NEEDED FOR PAIN active Not Available Not Available No t Available omeprazole 20 mg capsule,del ayed release TAKE 1 CAPSULE BY MOUTH ONCE DAILY active Not Available Not Available No t Available diclofenac 1 % topical gel APPLY 1 APPLICATI ON OF GEL TOPICALLY TO AFFECTED AREA TWICE DAILY NEEDED active Not Available Not Available No t Available Fioricet 50 mg-300 mg-40 mg capsule Take 1 capsule every 4-6 hours by oral route with meals for 5 days. 2022 active Not Available Not Available Not Avai lable Allergy Relief (fluticason e) 50 mcg/actuati on nasal spray,suspe nsion [place] 1 spray every day by intranasa l route. 2022 active Not Available Not Available Not Avai lable Vitals Date Recorded Body height Body mass index (BMI) Body weight Respiratory rate Oxygen saturation Oxygen saturation in Arterial blood by Pulse oximetry Heart rate Body temperature Systolic And Diastolic Provider Name and Address Organization Details Last Updated DateTime 3 170.18 cm 24.3 kg/m2 19700.8 2 g 19 /min 97 % 97 % 88 /min 98.1 [degF] 106/70 mm[Hg] MJ MONET - [facility] 3 09:14:31 Date Recorded Body height Body mass index (BMI) Body weight Body temperature Respiratory rate Heart rate Oxygen saturation Oxygen saturation in Arterial blood by Pulse oximetry Systolic And Diastolic Provider Name and Address Organization Details Last Updated DateTime 3 170.18 cm 24.3 kg/m2 53185.8 2 g 97.4 [degF] 18 /min 79 /min 100 % 100 % 113/71 mm[Hg] Yelitza Barber [facility] 3 16:24:01 Social History Question Answer Notes LastModified by [employer] Details LastModified Time Tobacco Smoking Status Current Every Day Smoker MJ TI[facility]NEY Giron [employer] [facility] 10/29/2022 09:13:23 Which Illicit Or Recreational Drugs Have You Used? Marijuana [email or web address] Information not available 10/29/2022 How Much Tobacco Do You Smoke? 1 PPW [email or web address] Information not available 10/29/2022 Have You Recently Traveled Abroad? No [email or web address] Information not available 10/29/2022 Sex: Unknown Functional Status Question Answer Note LastModified by [employer] Details LastModified Time Do you use any illicit or recreational drugs? Yes [email or web address] Information not available 10/29/2022 Do you or have you ever used any other forms of tobacco or nicotine? No [email or web address] Information not available 10/29/2022 What is your level of alcohol consumption? None [email or web address] Information not available 10/29/2022 Mental Status None recorded. Family History Relationship Description Onset Age of this Age Resolved Age Notes LastModified by Organization Details LastModified Time Father No current problems or disability [email or web address] Not available 10/29 09:12:45 Mother No current problems or disability [email or web address] Not available 10/29 09:12:45 Medical History No medical history recorded. Immunizations Vaccine Type Date Status Note Provider Nam e and Address Organization Details Recorded Time Influenza, MDCK, quadrivalent, PF 0 completed TIERNEY Mireles [facility] 11/03/2022 16:20:17 COVID-19, mRNA, LNP-S, PF, 100 mcg/0.5mL dose or 50 mcg/0.25mL dose 2 completed Yelitza Monfette null, [place] - [facility] 11/03/2022 16:20:17 COVID-19, mRNA, LNP-S, PF, 100 mcg/0.5mL dose or 50 mcg/0.25mL dose 1 completed Yelitza Monfette null, PA - [facility] 11/03/2022 16:20:17 COVID-19, mRNA, LNP-S, PF, 100 mcg/0.5mL dose or 50 mcg/0.25mL dose 1 completed Yelitza Monfette null, PA - [facility] 11/03/2022 16:20:17 Td (adult), 2 Lf tetanus toxoid, preservative free, adsorbed 6 completed Yelitza Monfette null, [place] - [facility] 11/03/2022 16:20:17 Hep B, adult 1 completed Yelitza Monfette null, [place] - [facility] 11/03/2022 16:20:17 Hep A, adult 1 completed Yelitza Monfette null, [place] - [facility] 11/03/2022 16:20:17 Past Encounters Encounter ID Performer Location Encounter Start Date Encounter Closed Date Diagnosis/Indication Diagnosis SNOMED-CT Code Diagnosis ICD10 Code Diagnosis Note [id number] [address] [place] [address] 01/17/2022 12:48:48 01/17/2022 16:10:30 [id number] [address] [place] [address] 02/16/2021 16:26:27 02/16/2021 17:01:09 [id number] [address] [place] [address] 02/14/2022 17:13:36 02/14/2022 18:30:33 [id number] [address] [place] [address] 10/21/2018 18:41:27 10/21/2018 19:32:10 [id number] [address] [place] [address] 05/18/2021 15:10:25 05/18/2021 17:33:30 [id number] [address] [place] [address] 01/16/2021 18:27:41 01/16/2021 18:47:59 [id number] [address] [place] [address] 03/17/2021 10:09:48 03/17/2021 12:05:39 [id number] [address] [address] [place] [address] 03/30/2021 13:03:37 03/30/2021 17:16:17 [id number] Yuri Pendleton NP [address] [place] [address] 10/29/2022 08:18:55 10/29/2022 10:14:38 Headache 29824564 R51.9 Acute sinusitis 08922399 J01.90 [id number] [facility] REID [address] [place] [address] 11/03/2022 14:46:30 11/03/2022 17:04:35 Gingival abscess 844800013 K04.7 [id number] TIERNEY REID [address] [address] 03/14/2024 16:01:01 03/14/2024 16:23:42 History and physical examination, occupation [id number] Z02.1 Health Concerns Section Related Observation LastModified by Organization Detai ls LastModified Time None Recorded Concern Status LastModified by Organization Details LastModified Time None Recorded Advance Directives Directive None Recorded Payers Insurance Date Sequence Insurance Name Policy Number Policy Vanegas Covered Member ID Vanegas Member ID Guarantor Name 03/14/2024 OC-ESCREEN Oc-Escre en [[id number]] 355 ciValue Clinton Murillo 03/14/2024 1 [facility] [employer] - DIRECT CONNECTORCARE TYPE I (HMO) [id number] Clinton Murillo [id number] Clinton Murillo Notes Date Note Type Note Provider Name and Address Organization Details Recorded Time 10/29/2022 text/html Headache UCRepor saleem bypatient.source of patient informationPatient arrived at Urgent Care ambulatory Location:band around head Quality:not the worst headache ever;not similar to previous headaches;aching;contin uous Severity:moderate Duration:occur many times in groups or clusters Onset/Timing:better; abrupt onset Context:not related to trauma; stress at work Aggravating factors:nothing makes it worse Alleviating factors:nothing gives relief Associated Symptoms:no vomiting; no sensitivity to light; no confusion; no slurred speech; no preceeding aura; no double vision; normal feeling/sensation; no motor paralysis; no dizziness; no sleep disturbances; no nosebleeds; no hoarseness; no sore throat; no hearing loss; no tearing/watery eyes;cold symptoms Yuri Pendleton NP [address] [place], [address], [place] - [facility] 10/29/2022 10:13:15 11/03/2022 text/html Dental ProblemRe ported bypatient.Onset4 days Locationlower; wisdom tooth/third molar Symptomspain;gingival swelling Treatment:OTC medicationsNotes:The patient has been fighting dental pain on and off but this time it is so much worse. Increased swelling in the back of the mouth. Does not have a dentist and insurance does not kick in until December 07. The patient is in a lot pain. They think it is an infection. TIERNEY REID [address] [place], [id number], [place] - [facility] 11/03/2022 17:05:05
--- OUTSIDE RECORDS SUMMARY | 2025-02-20 12:54 | XMS_ITS | Clinical Summary ---
Author Organization [facility] [address] [place] [address] [place] [phone] Phone Care Team Providers Care Education Liaison Name Role Phone Fabiola Tobar MD Primary Care Provider [phone] Allergies Active Allergy Reactions Criticality Noted Date Comments Shellfish Containing Products 2022 Sulfa (Sulfonamide Antibiotics) 04/09 Told as child Medications ascorbic acid (VITAMIN C) 1,000 mg tablet Take 1 tablet (1,000 mg total) by mouth 1 (one) time each day. Active UNABLE TO FIND Med Name: Riboflavin 100MG Cap 4 po qd Active acetaminophen (TYLENOL) 500 mg tablet Take 2 tablets (1,000 mg total) by mouth if needed. 3 Active atorvastatin (LIPITOR) 20 mg tablet Take 1 tablet by mouth once daily 90 tablet 5 Active divalproex (DEPAKOTE) [address] tablet Take 1 tablet (500 mg total) by mouth 2 (two) times a day. Take 1 tablet (500 mg total) by mouth 2 (two) times a day. 60 each 5 5 Active ibuprofen (ADVIL,MOTRIN) 600 mg tablet TAKE 1 TABLET BY MOUTH EVERY 8 HOURS NEEDED FOR PAIN 90 tablet 5 Active fluticasone furoate-vilanter oL (Breo Ellipta) 100-25 mcg/dose inhaler Inhale 1 puff by mouth 1 (one) time each day. 3 each 3 5 Active albuterol HFA (Ventolin HFA) 90 mcg/actuation inhalerIndicatio ns:Moderate persistent asthma, unspecified whether complicated Inhale 2 puffs by mouth every 6 (six) hours if needed for wheezing. 3 g 3 5 11/15/19 26 Active rizatriptan (MAXALT) 10 mg tablet TAKE 1 TABLET BY MOUTH NEEDED FOR MIGRAINE. MAY REPEAT IN 2 HOURS IF NEEDED, MAXIMUM OF 2 TABLETS IN 24 HOURS. 10 tablet 3 5 Active multivitamin tablet Take 1 tablet by mouth 1 (one) time each day. Active omeprazole OTC (PriLOSEC OTC) 20 mg EC tablet Take 1 tablet (20 mg total) by mouth 1 (one) time each day. Do not crush, chew, or split. Active esomeprazole (NexIUM) [address] capsule TAKE 1 CAPSULE BY MOUTH ONCE DAILY. DO NOT OPEN CAPSULE. 90 capsule 1 5 Active magnesium oxide (MAG-OX) 400 mg (241.3 elemental magnesium) tablet 1 po qd 30 each 5 5 Active cetirizine (Allergy Relief, cetirizine,) 10 mg tablet Take 1 tablet (10 mg total) by mouth 1 (one) time each day. 90 tablet 5 Active cyanocobalamin, vitamin B-12, 1,000 mcg capsule Take 1 capsule by mouth 1 (one) time each day. 90 capsule 5 Active cholecalciferol (Vitamin D3) 50 mcg (2,000 unit) tablet Take 1 tablet (2,000 Units total) by mouth 1 (one) time each day. 90 tablet 5 Active Active Problems Problem Noted Date Diagnosed Date Chest pain 11/22/2024 Assessment & Plan (11/29/2024 3:34 PM EDT): Chest pain somewhat atypical does have risk for coronary disease we sent for routine stress test. Orders: Ambulatory referral to Cardiology Exercise stress test; Future The above note was prepared with the help of voice recognition software. Please excuse any grammatical or spelling errors that may have occurred Left buttock abscess 04/27/2024 Class 1 obesity due to exces s calories without serious comorbidity with body mass index (BMI) of 30.0 to 30.9 in adult 04/27/2024 Mild intermittent asthma without complication CYNTHIA (acute kidney injury) ([facility] V24) 06/29/20 Gastroesophageal reflux disease 06/29/2023 Hyperlipidemia 06/29/2023 Lesion of bladder 05/28/2023 Pain of toe of right foot 05/19/2023 Right hand pain 05/19/2023 Chronic kidney disease 03/23/2023 Vitamin D deficiency 11/09/2022 Insomnia 10/29/2022 Migraine 10/29/2022 Palpitations 12/05/2020 Overview (10/06/2023): Last Assessment & Plan: Patient really does [...] need to proceed with any further testing DDD (degenerative disc disease), lumbar 02/06/20 Somatic dysfunction of hip region 03/02/2019 Low back pain 03/11/2018 Marijuana use 02/14/2018 Pure hypercholesterolemia 02/14/2018 Encounters Date Type Department Care Team Description 12/25/2024 Telephone Gastroenterology - [place] [address] [facility] [address] [place] [address] Criss Chiu MD Special Procedure 12/18/2024 Telephone Adult Medicine [address] [phone] Fabiola Tobar MD Advice Only 12/07/2024 8:30 AM EDT Office Visit [facility] Hematology Oncology [address] [place] [address] Evangelina Raymond PA Leukocytosis, unspecified type (Primary Dx); Leukemia consultation (CMS/HCC V24, CMS/HCC V28); Tobacco use disorder; Chronic joint pain 12/05/2024 9:15 AM EDT Ancillary Procedure [facility] Cardiology [facility] [address] [place] [address] Chest pain, unspecified type 12/01/[address] [facility] [address] [place] [phone] Volodymyr Guzmán MD Appointment (Cardiac Clearance for Dental Procedure) 12/01/[address] [place] [address] Volodymyr Guzmán MD stress test scheudling 11/29/2024 2:00 PM EDT Office Visit [facility] [address] [place] [address] Volodymyr Guzmán MD Chest pain, unspecified type 11/28/2024 12:00 PM EDT Office Visit Nephrology - [address] [address] Gaetano Stokes MD Elevated serum creatinine (Primary Dx) 11/22[facility] [address] [place] [address] Kaela Woodward MD Medication Problem from Last 3 Months Immunizations Name Administration Dates Next Due Hepatitis A Adult (Havrix; Vaqta) 19yo and older 05/04/2011 Hepatitis B (Wvbhxpt-F-Pwlep , Recombivax HB-Adult) 19yo and older 05/04/2011 Influenza Quadravalent, MDCK , 0.5ml, preservative free (Flucelvax) 6mo and older 05/27/2020 Td Tetanus diptheria (Tdvax) 7yo and older 01/07 Surgical History Surgery Date Site/Laterality Comments NO PAST SURGERIES PROCEDURE:NO PAST SURGERIES WISDOM TOOTH EXTRACTION PROCEDURE: HISTORICAL WISDOM TEETH EXTRACTION OTHER SURGICAL HISTORY 03/2019 PROCEDURE: ME INCISION & DRAINAGE ABSCESS SIMPLE/SINGLE; COMMENT: scrotum Medical History Medical History Date Comments Pure hypercholesterolemia DX:Pur e hypercholesterolemia Migraine DX:Migraine Anxiety DX:Anxiety Migraine DX:Migraine Environmental allergies DX:Envir onmental allergies High cholesterol DX:High cholest buzz Insomnia DX:Insomnia Liver hemangioma 09/20/2020 DX:Liver melita ioma Chronic right shoulder pain 03/11/2018 DX:C hronic right shoulder pain Sprain of sacroiliac ligament 03/02/2019 DX :Sprain of sacroiliac ligament Snoring 05/03/2019 DX:Snoring; COMM ENT: 04/2019 Home Sleep Study did not reveal sleep apnea or nocturnal hypoxia. Family History Medical History Relation Name Comments Asthma Aunt No Known Problems Brother No Known Problems Maternal Grandmother Other: lupus Mother Asthma Son 1 PTSD, ADD Relation Name Status Comments Aunt Brother Alive Maternal Grandmother Alive Mother Alive Son 1 Alive Son 2 Alive Social History Tobacco Use Types Packs/Day Years Used Date Smoking Tobacco: Every Day Cigarettes 0.3 23.5 Started: 08/09/2001 Smokeless Tobacco: Current Tobacco Cessation:Ready to Q uit: Not Asked; Counseling Given: Not Answered Comments:5-6 cigarettes daily Alcohol Use Standard Drinks/Week Comments Never 0 (1 standard drink = 0.6 oz pur e alcohol) Sex and Gender Information Value Date Recorded Sex Assigned at Male 07/31/2024 10:40 AM EST Legal Sex Male 7:57 AM EST Gender Identity Male 07/31/2024 10:40 AM EST Sexual Orientation Not on file Obstetrics History Last Filed Vital Signs Vital Sign Reading Time Taken Comments Blood Pressure 120/77 12/07/2024 8:44 AM EDT Pulse 76 12/07/2024 8:44 AM EDT Temperature 36.7 C (98.1 F) 12/07/2024 8:44 AM EDT Respiratory Rate 16 11/14/2024 11:53 AM EDT Oxygen Saturation 100% 12/07/2024 8:44 AM EDT Inhaled Oxygen Concentration - - Weight 82.6 kg (182 lb) 12/07/2024 8:44 AM EDT Height 170.2 cm (5' 7 ) 12/07/2024 8:44 AM EDT Body Mass Index 28.51 12/07/2024 8:44 AM EDT Plan of Treatment Upcoming Encounters Date Type Department Care Team (Late st Contact Info) Description 03/20/2025 9:45 AM EDT Office Visit Pulmonolgy - [place] 175 [facility] 200 [place] [phone] Kaela Woodward MD 175 [facility] 200 [place] [address] 03/20/2025 11:00 AM EDT Office Visit [facility] for [facility] - [place] [address] [phone] Terrie Castillo PA [address] [address] 03/27/2025 11:00 AM EDT Appointment [facility] End[facility] [address] [place] [phone] Cheng Dorsey DO [address] [address] 09/04/2025 3:00 PM EST Office Visit Adult Medicine [facility] [address] [place] [address] Fabiola Tobar MD [address] [place] [phone] Health Maintenance Due Date Last Done Comments Pneumococcal Vaccine: Pediatrics (0 to 5 Years) and At-Risk Patients (6 to 49 Years) (1 of 2 - PCV) 2003 Hepatitis B Vaccines (2 of 3 - 19+ 3-dose series) 06/01/2011 05/04/2011 DTaP,Tdap,and Td Vaccines (2 - Td or Tdap) 01/08/2016 01/07/2006 HIV Screening 07/18/2022 Social Influencers of Health Screening 09/08/2023 09/08/2022 Depression Screening 11/10/2023 11/09/2022 COVID-19 Vaccine (4 - 2023-2 5 season) 2024 11/03/2021, 03/21/2021, 02/21/2021 Influenza Vaccine (#1) 2025 05/27/2020 Cholesterol Screening (Lipid Panel) 11/14/2029 11/14/2024, 11/09/2022, 11/09/2022 Hepatitis A Vaccines Aged Out 05/04/2011 No long er eligible based on patient's age to complete this topic Hepatitis C Screening Completed 05/27/2020 HIB Vaccines Aged Out No longer eligi ble based on patient's age to complete this topic HPV Vaccines Aged Out No longer eligi ble based on patient's age to complete this topic IPV Vaccines Aged Out No longer eligi ble based on patient's age to complete this topic MMR Vaccines Aged Out No longer eligi ble based on patient's age to complete this topic Meningococcal ACWY Vaccine Aged Out N o longer eligible based on patient's age to complete this topic Meningococcal B Vaccine Aged Out No l onger eligible based on patient's age to complete this topic RSV Immunization Patients Under 20 months Aged Out No longer eligible b ased on patient's age to complete this topic Varicella Vaccines Aged Out No longer eligible based on patient's age to complete this topic Procedures Procedure Name Priority Date/Time Associated Diagnosis Comments STRESS TEST ONLY EXERCISE Routine 12/05/2024 9:41 AM EDT Chest pain, unspecified type PROTEIN, URINE, 24H Routine 11/27/2024 1 2:05 PM EDT CYNTHIA (acute kidney injury) ([facility]/HCC V24) Chronic kidney disease, unspecified CKD stage Hyperlipidemia, unspecified hyperlipidemia type RENAL FUNCTION PANEL Routine 11/27/2024 12:05 PM EDT CYNTHIA (acute kidney injury) ([facility]/HCC V24) Chronic kidney disease, unspecified CKD stage Hyperlipidemia, unspecified hyperlipidemia type CREATININE, URINE, 24H Routine 11/27/2024 12:05 PM EDT CYNTHIA (acute kidney injury) ([facility]/HCC V24) Chronic kidney disease, unspecified CKD stage Hyperlipidemia, unspecified hyperlipidemia type WILCOX URINE CULTURE TUBE Routine 11/23/2024 11:31 AM EDT Leukocytosis, unspecified type URINALYSIS WITH REFLEX MICROSCOPIC AND CULTURE Routine 11/23/2024 11:02 AM EDT Leukocytosis, unspecified type URINALYSIS WITH REFLEX MICROSCOPIC AND CULTURE Routine 11/23/2024 11:02 AM EDT Leukocytosis, unspecified type BASIC METABOLIC PANEL Routine 11/23/2024 11:02 AM EDT Elevated serum creatinine LIPID PANEL WITH REFLEX TO DIRECT LDL Routine 11/14/2024 10:06 AM EDT Routine general medical examination at a [facility] facility HEPATITIS C SCREENING Routine 05/27/2020 from Last 3 Months or Most Recently Relevant to Health Maintenance Results * Exercise stress test (12/05/2024 9:41 AM EDT) Target HR 153 bpm CV STRESS ONLY Baseline HR 91 bpm CV STRES S ONLY Baseline SBP 110 mmHg CV STRE SS ONLY Baseline DBP 58 mmHg CV STRE SS ONLY Peak HR 155 bpm CV STRESS ONLY Peak SBP 150 mmHg CV STRESS ONLY Peak DBP 70 mmHg CV STRESS ONLY Estimated workload 10.3 METS CV STRESS ONLY Rate Pressure Product 23,250.0 mmHg*bpm CV STRESS ONLY Percent HR 86 % CV STRESS ONLY Exercise/inject ion duration (min) 9 min CV STRESS ONLY Exercise/inject ion duration (sec) 0 sec CV STRESS ONLY Angina Index 0 CV STRE SS ONLY Cordova Treadmill Score [address] Depression (mm) 0 mm CV STRESS ONLY Anatomical Region Laterality Modality Cardiac Diagnost ic Narrative 12/05/2024 6:18 PM EDT Exercise stress test was performed. Patient reported no symptoms during the stress test. Exercise capacity was average. Normal blood pressure response. Stress: Overall, the patient's exercise capacity was average. Total stress time was 9 min and 0 sec. The test was stopped because the patient experienced calf cramping. The patient reported no symptoms during the stress test. ECG: The result of the stress ECG was negative for ischemia. Negative ETT Stress Findings A Kingsley protocol stress test was performed. Overall, the patient's exercise capacity was average. Total stress time was 9 min and 0 sec. The patient experienced no angina during the test. The test was stopped because the patient experienced calf cramping. The Cordova Treadmill Score is 9. The patient's hemodynamic response was adequate for diagnosis. Blood pressure demonstrated a normal response. Heart rate demonstrated a normal response. The patient reported no symptoms during the stress test. ECG 39 yo male with tobacco use and hyperlipidemia with atypical chest pain. The ECG shows normal sinus rhythm. There were no arrhythmias during stress. There is no ST segment changes during stress. There were no arrhythmias during recovery. The result of the stress ECG was negative for ischemia. Procedure Note Kasandra Wilson PA / Volodymyr Guzmán MD - 12/05/2024 Exercise stress test was performed. Patient reported no symptoms duringthe stress test. Exercise capacity was average. Normal blood pressureresponse. Stress: Overall, the patient's exercise capacity was average. Totalstress time was 9 min and 0 sec. The test was stopped because the patientexperienced calf cramping. The patient reported no symptoms during thestress test. ECG: The result of the stress ECG was negative for ischemia. Negative ETT Volodymyr Guzmán MD CV STRESS PROCEDURES Final Res ult * (ABNORMAL) Creatinine, urine, 24H (11/27/2024 12:05 PM EDT) Creatinine, Urine 124.0 mg/dL LAB CHEMISTRY METHOD 11/27/2024 8:09 PM [facility] Creatinine, 24H Ur 2,232(H) 800 - 2,000 mg/24 Hr LAB CHEMISTRY METHOD 11/27/2024 8:09 PM [facility] Urine Volume 1,800 mL LAB CHEMISTRY METHOD 11/27/2024 8:09 PM [facility] Collection Interval, Ur 24 hr LAB CHEMISTRY METHOD 11/27/2024 8:09 PM [facility] Urine Urine specimen from urethra / Unknown Non-blood Collection / Unknown 11/27/2024 12:05 PM EDT 11/27/2024 12:05 PM EDT us Gaetano Stokes MD LAB URINE ORDERABLES Final Res ult Performing Organization Address [facility]/ZIP Co de Phone Number [facility] [address] [place] [address], [place] [phone] * Protein, urine, 24H (11/27/2024 12:05 PM EDT) Protein, Urine 8 mg/dL LAB CHEMISTRY METHOD 11/27/2024 8:09 PM EDT [facility] Protein, 24H Ur 144.0 0.0 - 150.0 mg/24 hr LAB CHEMISTRY METHOD 11/27/2024 8:09 PM EDT [facility] Urine Volume 1,800 mL LAB CHEMISTRY METHOD 11/27/2024 8:09 PM EDT [facility] Collection Interval, Ur 24 hr LAB CHEMISTRY METHOD 11/27/2024 8:09 PM EDT [facility] Urine Urine specimen from urethra / Unknown Non-blood Collection / Unknown 11/27/2024 12:05 PM EDT 11/27/2024 12:05 PM EDT us Gaetano Stokes MD LAB URINE ORDERABLES Final Res ult Performing Organization Address [facility]/ZIP Co de Phone Number [facility] [address] [place] [address], [place] [phone] * (ABNORMAL) Renal function panel (11/27/2024 12:05 PM EDT) Sodium 137 133 - 145 mmol/L LAB CHEMISTRY METHOD 11/27/2024 6:18 PM EDT [facility] Potassium 4.7 3.5 - 5.5 mmol/L LAB CHEMISTRY METHOD 11/27/2024 6:18 PM [facility] Chloride 103 96 - 110 mmol/L LAB CHEMISTRY METHOD 11/27/2024 6:18 PM [facility] CO2 30 21 - 32 mmol/L LAB CHEMISTRY METHOD 11/27/2024 6:18 PM [facility] Anion Gap 4 3 - 11 LAB CHEMISTRY METHOD 11/27/2024 6:18 PM [facility] Glucose 73 70 - 100 mg/dL LAB CHEMISTRY METHOD 11/27/2024 6:18 PM [facility] BUN 12 5 - 25 mg/dL LAB CHEMISTRY METHOD 11/27/2024 6:18 PM [facility] Creatinine 1.35(H) 0.70 - 1.30 mg/dL LAB CHEMISTRY METHOD 11/27/2024 6:18 PM [facility] eGFR 68 >=60 mL/min/1. 73m2 LAB CHEMISTRY METHOD 11/27/2024 6:18 PM [facility] Comment:Calculation based on the Chronic Kidney Disease Epidemiology Collaboration (CKD-EPI) equation refit without adjustment for race. BUN/Creatinine Ratio 8.9 LAB CHEMISTRY METHOD 11/27/2024 6:18 PM [facility] Albumin 3.7 3.2 - 5.0 g/dL LAB CHEMISTRY METHOD 11/27/2024 6:18 PM [facility] Calcium 9.5 8.5 - 10.5 mg/dL LAB CHEMISTRY METHOD 11/27/2024 6:18 PM [facility] Phosphorus 3.0 2.5 - 4.5 mg/dL LAB CHEMISTRY METHOD 11/27/2024 6:18 PM [facility] Blood Venous blood specimen / Unknown Venipuncture / Unknown 11/27/2024 12:05 PM EDT 11/27/2024 12:05 PM EDT us Gaetano Stokes MD LAB BLOOD ORDERABLES Final Res ult [facility] [address] [place] [address], [place] [phone] * Wilcox urine culture tube (11/23/2024 11:31 AM EDT) Pathologist [facility] Extra Tube Hold for add-ons. 11/23/2024 1:01 PM EDT [facility] Comment:Auto resulted. Urine Urine specimen obtained by clean catch procedure / Unknown Non-blood Collection / Unknown 11/23/2024 11:31 AM EDT 11/23/2024 11:31 AM EDT Fabiola Tobar MD LAB URINE ORDERABLES Final Result Performing Organization Address City/[facility]/ZIP Co de Phone Number [facility] [address] [place] [address], [place] [phone] * (ABNORMAL) Urinalysis with reflex microscopic and culture (11/23/2024 11:02 AM EDT) [facility] Specific [place] Urine 1.024 1.003 - 1.030 LAB URINALYSIS - AUTOMATED METHOD 11/23/2024 12:44 PM T [facility] pH, Urine 8.0 5.0 - 8.0 pH LAB URINALYSIS - AUTOMATED METHOD 11/23/2024 12:44 PM [facility] Leukocytes, Urine Negative Negative LAB URINALYSIS - AUTOMATED METHOD 11/23/2024 12:44 PM EDT [facility] Nitrite, Urine Negative Negative LAB URINALYSIS - AUTOMATED METHOD 11/23/2024 12:44 PM EDT [facility] Protein, Urine 30(A) <=Trace mg/dL LAB URINALYSIS - AUTOMATED METHOD 11/23/2024 12:44 PM T [facility] Glucose, Urine Negative Negative mg/dL LAB URINALYSIS - AUTOMATED METHOD 11/23/2024 12:44 PM EDT [facility] Ketones, Urine Trace(A) Negative mg/dL LAB URINALYSIS - AUTOMATED METHOD 11/23/2024 12:44 PM [facility] Urobilinogen, Urine 1.0 0.2 - 1.0 mg/dL LAB URINALYSIS - AUTOMATED METHOD 11/23/2024 12:44 PM [facility] Bilirubin, Urine Negative Negative LAB URINALYSIS - AUTOMATED METHOD 11/23[facility]24 [facility] Blood, Urine Negative Negative LAB URINALYSIS - AUTOMATED METHOD 11/23/2024 12:44 PM [facility] RBC, Urine 2.4 0 - 4 /HPF LAB URINALYSIS - AUTOMATED METHOD 11/23/2024 12:44 PM [facility] WBC, Urine 1.1 0 - 4 /HPF LAB URINALYSIS - AUTOMATED METHOD 11/23/2024 12:44 PM [facility] Squamous Epithelial, Urine 10 0 - 60 /LPF LAB URINALYSIS - AUTOMATED METHOD 11/23/2024 12:44 PM [facility] Bacteria, Urine Negative Negative /HPF LAB URINALYSIS - AUTOMATED METHOD 11/23/2024 12:44 PM [facility] Hyaline Casts, Urine 0.4 0 - 3 /LPF LAB URINALYSIS - AUTOMATED METHOD 11/23/2024 12:44 PM [facility] Urine Urine specimen obtained by clean catch procedure / Unknown Non-blood Collection / Unknown 11/23/2024 11:02 AM EDT 11/23/2024 11:02 AM EDT us Fabiola Tobar MD LAB URINE ORDERABLES Final Result [facility] [address] [place] [address], [place] [phone] * (ABNORMAL) Basic metabolic panel (11/23/2024 11:02 AM EDT) Sodium 135 133 - 145 mmol/L LAB CHEMISTRY METHOD 11/23/2024 2:52 PM [facility] Potassium 4.0 3.5 - 5.5 mmol/L LAB CHEMISTRY METHOD 11/23/2024 2:52 PM [facility] Chloride 100 96 - 110 mmol/L LAB CHEMISTRY METHOD 11/23/2024 2:52 PM [facility] CO2 30 21 - 32 mmol/L LAB CHEMISTRY METHOD 11/23/2024 2:52 PM [facility] Anion Gap 5 3 - 11 LAB CHEMISTRY METHOD 11/23/2024 2:52 PM [facility] Glucose 90 70 - 100 mg/dL LAB CHEMISTRY METHOD 11/23/2024 2:52 PM [facility] BUN 13 5 - 25 mg/dL LAB CHEMISTRY METHOD 11/23/2024 2:52 PM [facility] Creatinine 1.39(H) 0.70 - 1.30 mg/dL LAB CHEMISTRY METHOD 11/23/2024 2:52 PM [facility] eGFR 66 >=60 mL/min/1. 73m2 LAB CHEMISTRY METHOD 11/23/2024 2:52 PM [facility] Comment:Calculation based on the Chronic Kidney Disease Epidemiology Collaboration (CKD-EPI) equation refit without adjustment for race. BUN/Creatinine Ratio 9.4 LAB CHEMISTRY METHOD 11/23/2024 2:52 PM [facility] Calcium 9.5 8.5 - 10.5 mg/dL LAB CHEMISTRY METHOD 11/23/2024 2:52 PM [facility] Blood Venous blood specimen / Unknown Venipuncture / Unknown 11/23/2024 11:02 AM EDT 11/23/2024 11:02 AM EDT us Fabiola Tobar MD LAB BLOOD ORDERABLES Final Result [facility] [address] [place] [address], [place] [phone] * Lipid panel with reflex to direct LDL (11/14/2024 10:06 AM EDT) Cholesterol 166 0 - 200 mg/dL LAB CHEMISTRY METHOD 11/14/2024 1:31 PM EDT [facility] Triglycerides 94 0 - 150 mg/dL LAB CHEMISTRY METHOD 11/14/2024 1:31 PM EDT [facility] HDL 57 >=40 mg/dL LAB CHEMISTRY METHOD 11/14/2024 1:31 PM EDT [facility] LDL Calculated 90 0 - 100 mg/dL LAB CHEMISTRY METHOD 11/14/2024 1:31 PM EDT [facility] VLDL Cholesterol Willian 18.8 mg/dL LAB CHEMISTRY METHOD 11/14/2024 1:31 PM EDT [facility] Non HDL Chol. (LDL+VLDL) 109 <145 mg/dL LAB CHEMISTRY METHOD 11/14/2024 1:31 PM EDT [facility] Chol/HDL Ratio 2.9 0.0 - 4.4 LAB CHEMISTRY METHOD 11/14/2024 1:31 PM EDT [facility] Blood Venous blood specimen / Unknown Venipuncture / Unknown 11/14/2024 10:06 AM EDT 11/14/2024 10:06 AM EDT Prashanth MONET LAB BLOOD ORDERABLES Fin al Result [facility] [address] [place] [address], [place] [phone] * Hepatitis C Screening (05/27/2020) Hepatitis C Screening Abstracted us Historical Provider HEALTH MAINTENANCE Final Result from Last 3 Months or Most Recently Relevant to Health Maintenance Insurance [facility] Care Teams Education Liaison Relationship Specialty Start Date End Date Fabiola Tobar MD [address] [place] [address] PCP - General 10/20/22
--- OUTSIDE RECORDS SUMMARY | 2025-02-20 12:54 | XMS_ITS | Clinical Summary ---
Author Organization [facility] Address [address] [place] [address] Care Team Providers Care Pot Puller Name Role Phone Cosme Davies MD Primary Care Provider [phone] Allergies Active Allergy Reactions Criticality Noted Date Comments Shellfish 11/16/2022 Sulfa Antibiotics 04/24/2015 Told as child Medications Medication Sig Dispensed Refills Start Date End Date Status EQ Pain Reliever 500 MG tablet Take 2 tablets (1,000 mg total) by mouth every 6 (six) hours. 0 11/03/2022 Active atorvastatin (LIPITOR) tablet 20 mg Take 1 tablet (20 mg total) by mouth daily. 0 01/29/2022 Active Cholecalciferol (Dialyvite Vitamin D3 Max) 1.25 MG (55350 UT) TABS Take 1 tablet by mouth every 7 days. 0 11/09/2022 Active hydrOXYzine (ATARAX) 25 MG tablet Take 1 tablet (25 mg total) by mouth. 0 08/07/2019 Active ibuprofen 800 MG tablet Take 1 tablet (800 mg total) by mouth 3 (three) times a day. 0 11/03/2022 Active Riboflavin 100 MG CAPS 4 po qd 360 capsule 5 04/27/2023 Active magnesium oxide 400 (240 Mg) MG TABS tablet Take 1 tablet (400 mg total) by mouth daily. 90 tablet 3 04/27/2023 Active rizatriptan (MAXALT) 10 MG tablet Take 1 tablet (10 mg total) by mouth as needed for migraine. May repeat in 2 hours if needed, max 2/24 hrs 10 tablet 2 09/21/2023 Active divalproex (DEPAKOTE) [address] tablet Take 1 tablet (500 mg total) by mouth 2 (two) times a day. 270 tablet 3 04/11/2024 Active methylPREDNISolone (MEDROL DOSEPACK) 4 MG tablet follow package directions 21 tablet 0 05/05/2024 Active ondansetron (Zofran) 4 MG tablet 1 po up to bid PRN nausea 30 tablet 0 05/09/2024 Active Active Problems No known active problems Social History Tobacco Use Types Packs/Day Years Used Date Smoking Tobacco: Every Day Cigarettes 1.5 Smokeless Tobacco: Never Tobacco Cessation:Ready to Q uit: Not Asked; Counseling Given: Not Answered Alcohol Use Standard Drinks/Week Comments Not Currently 0 (1 standard drink = 0.6 oz pur e alcohol) Sex and Gender Information Value Date Recorded Sex Assigned at Male 10/20/2022 3:50 PM EDT Gender Identity Not on file Sexual Orientation Not on file Job Start Date Occupation Industry Not on file Not on file Not on file Last Filed Vital Signs Vital Sign Reading Time Taken Comments Blood Pressure 114/76 04/11/2024 9:59 AM EDT Pulse 88 04/11/2024 9:59 AM EDT Temperature 36.1 C (96.9 F) 04/11/2024 9:59 AM EDT Respiratory Rate 16 02/23/2023 10:42 AM EDT Oxygen Saturation 95% 04/11/2024 9:59 AM EDT Inhaled Oxygen Concentration - - Weight 87.7 kg (193 lb 6.4 oz) 06/28/2023 1:27 P M EST Height 170.2 cm (5' 7 ) 06/28/2023 1:27 PM EST Body Mass Index 30.29 06/28/2023 1:27 PM EST Plan of Treatment Health Maintenance Due Date Last Done Comments Hepatitis C Screening 1984 Pneumococcal Vaccine (1 of 2 - PCV) 1990 Depression Screening 1996 BMI Counseling 2002 Preventative Health Evaluation 2002 Tobacco Cessation Counseling 2002 DTap / Tdap / Td (1 - Tdap) 2003 Hepatitis B Vaccines (2 of 3 - 19+ 3-dose series) 06/01/2011 05/04/2011 COVID-19 Vaccine (2023-2 5 season) 2024 11/03/2021, 03/21/2021, 02/21/2021 Influenza Vaccine (#1) 2025 05/27/2020 RSV Ped < 20 months Aged Out No longe r eligible based on patient's age to complete this topic Care Teams Pot Puller Relationship Specialty Start Date End Date Cosme Davies MD PCP - General Internal Medicine 08/23/19
== END 2025-02-20 12:26 | disposition home or self-care (01) ==
LOC: HO.HOS 11:32
PROVIDERS: PCP Internal Medicine
DX: M25.641 Stiffness of right hand, not elsewhere classified (principal); M65.4 Radial styloid tenosynovitis [de Quervain]
CPT/HCPCS: 99203

== ENCOUNTER → 2025-02-20 11:33 | Outpatient (BNV) | payer OTHER, SELFPAY | PROVIDERS: Visit Provider Radiology Diagnostic Radiology | DX: M79.641 Pain in right hand (principal) | CPT/HCPCS: 73130 ==

== ENCOUNTER 2025-04-19 14:28 | Outpatient (RCR) | payer OTHER, SELFPAY ==
--- NOTE | 2025-04-19 15:20 | MHC.OT.EP ---
[facility] Office [address] [phone] F: [phone] F: [phone] Occupational Therapy Plan of Care Patient Name: Clinton Murillo Date of Evaluation: 04/19/25 Diagnosis: Right DeQuervain's Tenosynovitis, Right index pain/stiffness Pain Location: 3-11/16 right index (knuckle to finger tip), thumbs (B/L) Wrist pain free at rest - can get up to 7 No tenderness to palpate or mobilize through digits or right wrist Pain Score: 3 Pain Scale Used: Numeric (0 - 10) Aggravating Factors: Forceful movements, gripping Alleviating Factors: Trialed heat packs and compression gloves with no relief States Esteban gave him a wrist brace and was using occasionally at nighttime (does not know where it is now) Assessment: 39 yo male presents with ongoing hx of right index (had injury in December after hitting the shifting knob) and wrist pain (reports over a decade with no known injury). He was seen in Urgent Care for finger pain and referred to Ortho for cont'd work-up, which at the time indicated right De Quervain's tenosynovitis and right index pain w/ movement. X-ray shows possible right index PIP volar avulsion fx. On OT assessment today, pt offers no specific pain in right radial wrist, no tenderness or Finklesteins noted. He does have some volar wrist pain but very vague and no instability noted. Index range is good w/ no noted edema or pain localized to site of injury. Former Hand strength is 95lb B/L'ly and only c/o pain is in base of right thumb, with some laxity noted B/L'ly. We will do brief course of OT for stabilization, joint protection and activity modification. *Of note - pt with difficulty attending through assessment and very vague at times Frequency and Duration: The patient will be seen one follow up visit Short Term Goals: Ind w/ HEP for stabilization Ind w/ joint protection techniques Pt to self-research gripper gloves for ease w/ handling steering wheel and packages Pt to report good follow through w/ thumb spica for thumb/wrist relief Margin Trimmer Goals: same as above Treatment Plan: Therapeutic Exercise Therapeutic Activity Home Exercise Program Patient Education ADL Training P Electronically Signed By: Sarika Mckeon OTR/Enzo CHT Please Sign and return to therapist. Thank you once again for your referral.
--- NOTE | 2025-06-06 09:12 | MHC.OT.DC ---
[facility] Office [address] [phone] F: [phone] F: [phone] Occupational Therapy Discharge Note Patient Name: Clinton Murillo Provider: Esteban Mccurdy PA-C Diagnosis: Right DeQuervain's Tenosynovitis, Right index pain/stiffness Date of Surgery: Date of Evaluation: 04/19/25 Date of Discharge: 06/06/25 Treatments to Date: 1 Cancellations to Date: 1 No Shows to Date: 1 Discharge Status: Patient Elected to Stop Visit Non-compliance Discharge Summary: 39 yo male referred to OT with persistent right hand and wrist pain. He was seen for initial eval but did not follow up for further appts after missing two scheduled. Electronically Signed By: ADRIENNE Hatch/Enzo CHT Reviewed/agree with student documentation: Therapist: Please Sign and return to therapist, thank you for your referral.
== END 2025-06-06 09:12 | disposition home or self-care (01) ==
LOC: HO.OT 14:28
PROVIDERS: PCP Internal Medicine
DX: M65.4 Radial styloid tenosynovitis [de Quervain] (principal); M25.641 Stiffness of right hand, not elsewhere classified
CPT/HCPCS: 97110; 97165